=== PATIENT | male | born 1965 | race Caucasian/White ===

== ENCOUNTER → 2020-11-18 00:21 | Outpatient (CLI) | payer OTHER, SELFPAY ==
[2020-11-18 20:39] LABS: SARS-CoV-2 RNA PCR Negative
== END ==
PROVIDERS: PCP Family Medicine; Visit Provider Internal Medicine Gastroenterology
DX: Z01.812 Encounter for preprocedural laboratory examination (principal); Z20.822 Contact with and (suspected) exposure to COVID-19
CPT/HCPCS: C9803; U0003; U0005

== ENCOUNTER 2020-11-21 01:38 | Day surgery (SDC) | payer OTHER, SELFPAY ==
[2020-11-14 10:06] VITALS: BMI 36.6
[2020-11-21] MEDS: LACTATED RINGERS 1,000 ML 150 ML IV CONT (09:25)
[2020-11-21 09:30] VITALS: BP 149/92; PULSE 80; RESP 18; TEMP 36.5; O2SAT 98; BMI 35.6
--- NOTE | 2020-11-21 09:34 | WPDANESEPPF ---
Anes - Initial Pre Proc Eval Procedure: Operation Date: 11/21/20 10:30 Proposed Procedures p Screening Colonoscopy - Vel Cote MD Date/Time: 11/21/20 09:34 Surgeon: Vel Cote MD Pre Op Diagnosis: neoplasm screening Patient Data Age: 55 Gender: M Height: 5 ft 11 in Weight: 116.1 kg Last Vital Signs Temp 36.5 C 11/21/20 09:30 Pulse 80 11/21/20 09:30 Resp 18 11/21/20 09:30 BP 149/92 H 11/21/20 09:30 Pulse Ox 98 11/21/20 09:30 Allergies Allergy/AdvReac Type Severity Reaction Status Date / Time codeine Allergy Unknown Rash Verified 11/21/20 09:27 lisinopril Allergy Unknown cough Verified 11/21/20 09:27 pravastatin Allergy Unknown edema both Verified 11/21/20 09:27 LE Home Medications Medication Instructions Recorded Confirmed Type aspirin 81 mg tablet,delayed 81 mg PO DAILY 12/06/19 11/14/20 History release paroxetine HCl 10 mg tablet See Rx Instructions .ROUTE 07/03/20 11/14/20 Rx .COMPLEX #30 tablet telmisartan 80 mg tablet See Rx Instructions .ROUTE 09/26/20 11/14/20 Rx .COMPLEX #30 tablet metformin 500 mg tablet 1,000 mg PO BID #360 tablet 10/10/20 11/14/20 Rx omeprazole 40 mg capsule,delayed See Rx Instructions .ROUTE 10/10/20 11/14/20 Rx release .COMPLEX #90 cap simvastatin 40 mg tablet 40 mg PO DAILY #90 tablet 10/10/20 11/14/20 Rx metoprolol tartrate 50 mg PO DAILY 11/14/20 11/14/20 History sodium,potassium,mag sulfates See Rx Instructions .ROUTE 11/20/20 Rx [Suprep Bowel Prep Kit] .COMPLEX #1 ml Patient hx anesthesia problems: none Family hx anesthesia problems: none PMFSH Past Medical History Medical History Abnormal colonoscopy Knee injury Surgical History Surgical History History of esophagogastroduodenoscopy (EGD) Family History Family History Father Diabetes mellitus Hypertension Family history of elevated blood lipids Mother Hypertension Sibling Hypertension Family history of elevated blood lipids Other Family history of cardiovascular disease Social History Social History Smoking packs per day: 0.5 Smoking cigarettes per day: 10.0 Years smoked: 10 Smoking pack-years: 5.00 Smoking status: Former smoker Tobacco type: cigarettes Smoking end date: 10/13/11 Alcohol intake: current Drinks per week: 20 Substance use: never Substance use type: does not use Living arrangements: with family Spiritual care concerns: No Anes - Eval Final PreProcedure Day of Procedure 11/21/20 09:34 Patient weight: obese Heart: regular rate and rhythm Lungs: clear to auscultation Airway: Mallampati scale class 1 Neurological: alert and oriented Last oral intake: >/= 8 hours ASA classification: III Emergent: no Anesthetic plan: proceed Anesthesia type and monitoring: general GIVS and standard monitoring Informed Consent: The patient's anesthetic plan and its attendant risks and benefits were discussed with the patient/family/POA. Questions were solicited and answers provided to the satisfaction of the patient/family/POA.
[2020-11-21 09:38] LABS: Glucose Point of Care 159 (65-105)
--- NOTE | 2020-11-21 09:39 | WPDGICN ---
Assessment and Plan Assessment and plan (1) Colon cancer screening: Code(s): Z12.11 - Encounter for screening for malignant neoplasm of colon Status: Acute Assessment and Plan: Neoplasia screening advised because of patient's age. For this reason colonoscopy will be performed today. GI Consult Note Consult date/time: 11/21/20 09:39 HPI: Chano Aviles is a 55 year old male Presents for neoplasia screening. Patient has never had a colonoscopy before. His current weight appetite bowel movements are normal. He denies any blood in his stools. His weight has remained stable. Presents for screening colonoscopy today. Review of Systems Review of Systems: All systems reviewed & are unremarkable except as noted in HPI and below PMFSH Past Medical History Medical History Abnormal colonoscopy Knee injury Surgical History Surgical History History of esophagogastroduodenoscopy (EGD) Family History Family History Father Diabetes mellitus Hypertension Family history of elevated blood lipids Mother Hypertension Sibling Hypertension Family history of elevated blood lipids Other Family history of cardiovascular disease Social History Social History Smoking packs per day: 0.5 Smoking cigarettes per day: 10.0 Years smoked: 10 Smoking pack-years: 5.00 Smoking status: Former smoker Tobacco type: cigarettes Smoking end date: 10/13/11 Alcohol intake: current Drinks per week: 20 Substance use: never Substance use type: does not use Living arrangements: with family Spiritual care concerns: No Meds Home Medications and Allergies Home Medications Medication Instructions Recorded Confirmed Type aspirin 81 mg tablet,delayed 81 mg PO DAILY 12/06/19 11/14/20 History release paroxetine HCl 10 mg tablet See Rx Instructions .ROUTE 07/03/20 11/14/20 Rx .COMPLEX #30 tablet telmisartan 80 mg tablet See Rx Instructions .ROUTE 09/26/20 11/14/20 Rx .COMPLEX #30 tablet metformin 500 mg tablet 1,000 mg PO BID #360 tablet 10/10/20 11/14/20 Rx omeprazole 40 mg capsule,delayed See Rx Instructions .ROUTE 10/10/20 11/14/20 Rx release .COMPLEX #90 cap simvastatin 40 mg tablet 40 mg PO DAILY #90 tablet 10/10/20 11/14/20 Rx metoprolol tartrate 50 mg PO DAILY 11/14/20 11/14/20 History sodium,potassium,mag sulfates See Rx Instructions .ROUTE 11/20/20 Rx [Suprep Bowel Prep Kit] .COMPLEX #1 ml Allergies Allergy/AdvReac Type Severity Reaction Status Date / Time codeine Allergy Unknown Rash Verified 11/21/20 09:27 lisinopril Allergy Unknown cough Verified 11/21/20 09:27 pravastatin Allergy Unknown edema both Verified 11/21/20 09:27 LE Vital Signs Vital Signs - 24 hr 11/21/20 09:30 Temperature 97.7 F Pulse Rate 80 Respiratory Rate 18 Blood Pressure 149/92 H Pulse Oximetry 98 Exam Narrative: Exam Narrative: Physical exam reveals patient be alert. Vital signs stable. HEENT exam unremarkable. Lungs are clear to auscultation and percussion. Heart is without murmur or extra sounds. Abdominal exam bowel sounds are present soft nontender with no organomegaly. Digital external rectal exam is normal.
[2020-11-21 10:44] VITALS: BP 124/70; PULSE 79; RESP 25; O2SAT 97
[2020-11-21 10:54] VITALS: BP 116/76; PULSE 74; RESP 23; O2SAT 99
[2020-11-21 11:04] VITALS: BP 118/50; PULSE 74; RESP 23; O2SAT 96
== END 2020-11-21 11:19 | disposition home or self-care (01) ==
PROVIDERS: PCP Family Medicine; Visit Provider Internal Medicine Gastroenterology
PROC: 0DJD8ZZ Inspection of Lower Intestinal Tract, Via Natural or Artificial Opening Endoscopic (ICD-10-PCS; CPT 45378; principal; 2020-11-21 10:30)
DX: Z12.11 Encounter for screening for malignant neoplasm of colon (principal); D12.3 Benign neoplasm of transverse colon; K57.30 Diverticulosis of large intestine without perforation or abscess without bleeding; Z87.891 Personal history of nicotine dependence
CPT/HCPCS: 45385; 82948; 88305; C9803; J2704; J7120; U0003; U0005

== ENCOUNTER → 2021-01-29 09:13 | Outpatient (CLI) | payer OTHER, SELFPAY ==
--- NOTE | ~2021-01-29 | US_ITS ---
US right upper quadrant DATE: 01/29/2021 09:34 INDICATION: Elevated liver transaminase levels TECHNIQUE: Real-time imaging of liver, pancreas, gallbladder COMPARISON: None FINDINGS: There is fatty change of the liver. There is suboptimal penetration of the liver as a resul t, limiting evaluation. There is an approximately 5 mm hepatic cyst. Normal hepatopedal portal venous flow direction. The pancreas is not well demonstrated due to interference from bowel gas. No evidence of gallstones or gallbladder wall thickening or abnormal pericholecystic fluid. The commo n bile duct measures 3 mm. Negative sonographic Duenas's sign. IMPRESSION: Pancreas is largely obscured by bowel gas Hepatic steatosis. Small hepatic cyst Reviewed, dictated and finalized at [facility]. Reviewed, dictated and finalized at location A.
== END ==
PROVIDERS: PCP Family Medicine; Visit Provider Family Medicine
DX: R74.01 Elevation of levels of liver transaminase levels (principal); K76.0 Fatty (change of) liver, not elsewhere classified; K76.89 Other specified diseases of liver
CPT/HCPCS: 76705

== ENCOUNTER 2022-12-11 07:19 | Outpatient (CLI) | payer OTHER, SELFPAY ==
[2022-12-11 08:04] LABS: Alanine Aminotransferase 35 U/L (6-50); Albumin Level 4.9 g/dL (3.5-5.1); Alkaline Phosphatase 61 U/L (38-126); Anion Gap 9 mmol/L (8-16); Aspartate Amino Transferase 29 U/L (17-59); Bilirubin,Total 0.8 mg/dL (0.2-1.3); Blood Urea Nitrogen 13 mg/dL (9-20); Calcium 9.4 mg/dL (8.4-10.2); Carbon Dioxide 28 mmol/L (22-30); Chloride 99 mmol/L (98-107); Cholesterol 126 mg/dL (0-200); Estimated Glomerular Filt Rate > 60; Glucose 165 mg/dL (65-110); HDL Direct 37 mg/dL; Sodium 136 mmol/L (137-145); Triglycerides 213 mg/dL (<150)
[2022-12-11 08:15] LABS: LDL Cholesterol Direct 57 mg/dL
[2022-12-11 08:19] LABS: Creatinine Urine 112.3 mg/dL
[2022-12-11 08:22] LABS: MALB Creatinine Ratio 72.5 mg/g (0-30); Microalbumin Urine Random 81.4 mg/L (0-16.7)
[2022-12-11 09:21] LABS: Hemoglobin A1C 7.4 % (<5.7)
== END 2022-12-11 07:20 | disposition home or self-care (01) ==
LOC: ANHLAB 07:21
PROVIDERS: PCP Family Medicine; Visit Provider Nurse Practitioner
DX: E78.2 Mixed hyperlipidemia (principal); E11.9 Type 2 diabetes mellitus without complications; E03.9 Hypothyroidism, unspecified
CPT/HCPCS: 36415; 80053; 80061; 82043; 83036; 84443

== ENCOUNTER 2023-04-04 07:28 | Outpatient (CLI) | payer OTHER, SELFPAY ==
[2023-04-04 08:42] LABS: Alanine Aminotransferase 34 U/L (6-50); Albumin Level 4.6 g/dL (3.5-5.1); Alkaline Phosphatase 57 U/L (38-126); Anion Gap 10 mmol/L (8-16); Aspartate Amino Transferase 29 U/L (17-59); Bilirubin,Total 0.8 mg/dL (0.2-1.3); Blood Urea Nitrogen 16 mg/dL (9-20); Calcium 8.8 mg/dL (8.4-10.2); Carbon Dioxide 26 mmol/L (22-30); Chloride 103 mmol/L (98-107); Cholesterol 94 mg/dL (0-200); Estimated Glomerular Filt Rate > 60; Glucose 194 mg/dL (65-110); HDL Direct 34 mg/dL; Potassium 3.8 mmol/L (3.4-5.0); Sodium 139 mmol/L (137-145); Triglycerides 135 mg/dL (<150)
[2023-04-04 08:53] LABS: LDL Cholesterol Direct 45 mg/dL
[2023-04-04 09:45] LABS: Free T4 Free Thyroxine 0.89 ng/mL (0.78-2.19)
[2023-04-04 10:34] LABS: Hemoglobin A1C 7.2 % (<5.7)
== END 2023-04-04 07:29 | disposition home or self-care (01) ==
LOC: ANHLAB 07:29
PROVIDERS: PCP Family Medicine; Visit Provider Family Medicine
DX: F41.1 Generalized anxiety disorder (principal); E88.81 Metabolic syndrome and other insulin resistance; E78.2 Mixed hyperlipidemia; E11.9 Type 2 diabetes mellitus without complications; E03.9 Hypothyroidism, unspecified; I10 Essential (primary) hypertension
CPT/HCPCS: 36415; 80053; 80061; 83036; 84439; 84443

== ENCOUNTER 2023-07-28 07:14 | Outpatient (CLI) | payer OTHER, SELFPAY ==
[2023-07-28 08:03] LABS: Alanine Aminotransferase 37 U/L (6-50); Albumin Level 4.6 g/dL (3.5-5.1); Alkaline Phosphatase 59 U/L (38-126); Anion Gap 9 mmol/L (8-16); Aspartate Amino Transferase 31 U/L (17-59); Bilirubin,Total 0.8 mg/dL (0.2-1.3); Blood Urea Nitrogen 18 mg/dL (9-20); Carbon Dioxide 27 mmol/L (22-30); Chloride 102 mmol/L (98-107); Cholesterol 122 mg/dL (0-200); Estimated Glomerular Filt Rate > 60; Glucose 236 mg/dL (65-110); HDL Direct 37 mg/dL; Potassium 4.5 mmol/L (3.4-5.0); Sodium 138 mmol/L (137-145); Triglycerides 286 mg/dL (<150)
[2023-07-28 08:04] LABS: Hemoglobin A1C 7.1 % (<5.7)
[2023-07-28 08:16] LABS: LDL Cholesterol Direct 56 mg/dL
[2023-07-28 08:35] LABS: Creatinine Urine 180.3 mg/dL
[2023-07-28 08:41] LABS: Prostate Specific Antigen 2.1 ng/mL (< OR = 4.0)
[2023-07-28 09:07] LABS: MALB Creatinine Ratio 162.8 mg/g (0-30); Microalbumin Urine Random 293.6 mg/L (0-16.7)
== END 2023-07-28 07:15 | disposition home or self-care (01) ==
LOC: ANHLAB 07:16
PROVIDERS: PCP Family Medicine; Visit Provider Nurse Practitioner
DX: Z12.5 Encounter for screening for malignant neoplasm of prostate (principal); Z00.00 Encounter for general adult medical examination without abnormal findings; E11.9 Type 2 diabetes mellitus without complications
CPT/HCPCS: 36415; 80053; 80061; 82043; 83036; 84153; 84443; G0103

== ENCOUNTER 2023-10-04 07:49 | Outpatient (CLI) | payer OTHER, SELFPAY ==
[2023-10-04 08:10] LABS: Hematocrit 43.4 % (42.0-52.0); Hemoglobin 14.3 g/dL (14.0-18.0); Mean Corpuscular HGB Conc 32.9 g/dl (32-36); Mean Platelet Volume 10.6 fl (7.4-10.4); Platelet Count Result 180 k/mm3 (150-375); Red Blood Count 4.77 M/mm3 (4.6-6.20); White Blood Count 6.5 K/mm3 (4.5-10.0)
[2023-10-04 08:14] LABS: Appearance Urine Clear (Clear); Bilirubin Urine Negative (Negative); Blood Urine Negative (Negative); Color Urine Yellow (Yellow); Glucose Urine UA 3+ mg/dL (Negative); Ketones Urine Negative (Negative); Leukocyte Esterase Ur Negative LEU/UL (NEGATIVE); Nitrate Urine Negative (Negative); Protein Urine Negative (Negative); Specific Grav Ur 1.029 (1.001-1.035); pH Urine 5.5 (5.0-9.0)
[2023-10-04 08:27] LABS: Total Protein Urine Random 19 mg/dL; Ur Ttl Prot Creatinine Ratio 0.21 mg/mg (0-0.20)
[2023-10-04 08:32] LABS: Add Urine Microscopic? NO
[2023-10-04 08:41] LABS: Alanine Aminotransferase 32 U/L (6-50); Albumin Level 4.8 g/dL (3.5-5.1); Alkaline Phosphatase 62 U/L (38-126); Anion Gap 14 mmol/L (8-16); Aspartate Amino Transferase 27 U/L (17-59); Bilirubin,Total 0.8 mg/dL (0.2-1.3); Blood Urea Nitrogen 15 mg/dL (9-20); Calcium 9.8 mg/dL (8.4-10.2); Carbon Dioxide 24 mmol/L (22-30); Chloride 102 mmol/L (98-107); Cholesterol 98 mg/dL (0-200); Estimated Glomerular Filt Rate > 60; Glucose 116 mg/dL (65-110); HDL Direct 29 mg/dL; Potassium 3.7 mmol/L (3.4-5.0); Sodium 140 mmol/L (137-145); Triglycerides 271 mg/dL (<150)
[2023-10-04 08:43] LABS: Albumin Level 4.9 g/dL (3.5-5.1); Anion Gap 14 mmol/L (8-16); Blood Urea Nitrogen 15 mg/dL (9-20); Calcium 9.9 mg/dL (8.4-10.2); Carbon Dioxide 23 mmol/L (22-30); Chloride 102 mmol/L (98-107); Creatine Kinase 45 U/L (55-170); Estimated Glomerular Filt Rate > 60; Glucose 115 mg/dL (65-110); Phosphorus 3.8 mg/dL (2.5-4.5); Potassium 3.7 mmol/L (3.4-5.0); Sodium 139 mmol/L (137-145)
[2023-10-04 08:47] LABS: Complement C3 147 mg/dL (88-165)
[2023-10-04 08:52] LABS: LDL Cholesterol Direct 44 mg/dL
[2023-10-04 09:57] LABS: Hemoglobin A1C 6.6 % (<5.7)
[2023-10-04 09:58] LABS: Erythrocyte Sedimentation Rate 14 mm/hr (0-20)
[2023-10-04 11:07] LABS: Creatinine Urine 90.3 mg/dL
[2023-10-04 11:11] LABS: MALB Creatinine Ratio 71.3 mg/g (0-30); Microalbumin Urine Random 64.4 mg/L (0-16.7)
[2023-10-04 14:42] LABS: Total Volume 24 Hour Urine 2650 ml; Urea Nitrogen 24 Hour Urine 15.8 G/DAY (12-20)
[2023-10-07 23:26] LABS: Kappa\\Lambda Light Chains 1.17 (0.26-1.65); Lambda Light Chain 13.5 mg/L (5.7-26.3)
[2023-10-08 20:01] LABS: Complement Total CH50 56 U/mL (31-60)
[2023-10-09 22:50] LABS: Anti Nuclear Antibody Pattern Nuclear, Nucleolar
[2023-10-09 23:32] LABS: Albumin 53 %; Creat 24 Hr 1.79 g/24 h (0.50-2.15); Pro/Creat Ratio 134 mg/g creat (<100); Pro/Creat Ratio mg/mg 0.134 (<0.100); Protein,total, 24 Hr Ur 239 mg/24 h (<100)
== END 2023-10-04 07:50 | disposition home or self-care (01) ==
LOC: ANHLAB 07:50
PROVIDERS: Nurse Practitioner; PCP Family Medicine; Visit Provider Internal Medicine Nephrology
DX: Z00.00 Encounter for general adult medical examination without abnormal findings (principal); Z12.5 Encounter for screening for malignant neoplasm of prostate; R80.1 Persistent proteinuria, unspecified
CPT/HCPCS: 36415; 80053; 80061; 80069; 81003; 81050; 82043; 82550; 82570; 83036; 83883; 84153; 84156; 84443; 84540; 85027; 85652; 86038; 86039; 86160; 86162; 86334; 86335; G0103

== ENCOUNTER → 2023-10-14 16:17 | Outpatient (CLI) | payer OTHER, SELFPAY ==
--- NOTE | ~2023-10-14 | US_ITS ---
EXAMINATION: US renal BI DATE: 10/14/2023 16:34 INDICATION: R80.1 - Persistent proteinuria, unspecified TECHNIQUE: Multiple grayscale and Doppler ultrasound images of the kidneys were obtained. COMPARISON: None. FINDINGS: The right kidney measures 12.6 x 7.2 x 6.8 cm. The left kidney measures 12.1 x 6.2 x 6.0 cm. The kidn eys demonstrate normal parenchymal echogenicity and cortical thickness. 1.2 cm simple left midpole [address]. There is no hydronephrosis. The bladder is partially filled, no wall thickening. IMPRESSION: Unremarkable renal sonogram findings. Reviewed, dictated and finalized at location K. 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
== END ==
PROVIDERS: PCP Internal Medicine Nephrology; Visit Provider Internal Medicine Nephrology
DX: R80.1 Persistent proteinuria, unspecified (principal)
CPT/HCPCS: 76775

== ENCOUNTER 2023-10-23 15:46 | Outpatient (CLI) | payer OTHER, SELFPAY ==
[2023-10-23 16:03] LABS: Basophils Absolute Auto 0.1 K/mm3 (0.0-0.1); Eosinophils Absolute Auto 0.2 K/mm3 (0-0.3); Eosinophils Percent Auto 2.4 % (0-4.4); Hematocrit 45.3 % (42.0-52.0); Hemoglobin 15.2 g/dL (14.0-18.0); Immature Granulocyte Absolute 0.04 K/mm3 (0.00-0.031); Immature Granulocyte Percent A 0.5 % (0-0.5); Lymphocytes Percent Auto 32.8 % (18.3-44.2); Mean Corpuscular HGB Conc 33.6 g/dl (32-36); Mean Corpuscular Hemoglobin 30.1 pg (26-34); Mean Corpuscular Volume 89.7 fl (80-100); Mean Platelet Volume 10.7 fl (7.4-10.4); Monocytes Absolute Auto 0.9 K/mm3 (0.1-0.6); Monocytes Percent Auto 10.4 % (2.6-8.5); Neutrophils Absolute Auto 4.4 K/mm3 (1.3-6.7); Neutrophils Percent Auto 52.9 % (45.5-73.1); Platelet Count Result 190 k/mm3 (150-375); Red Blood Count 5.05 M/mm3 (4.6-6.20); Red Cell Distribution Width 13.4 % (11.5-14.5); White Blood Count 8.2 K/mm3 (4.5-10.0)
[2023-10-23 16:46] LABS: Alanine Aminotransferase 36 U/L (6-50); Albumin Level 5.1 g/dL (3.5-5.1); Alkaline Phosphatase 60 U/L (38-126); Anion Gap 13 mmol/L (8-16); Aspartate Amino Transferase 34 U/L (17-59); Blood Urea Nitrogen 16 mg/dL (9-20); Calcium 10.3 mg/dL (8.4-10.2); Carbon Dioxide 26 mmol/L (22-30); Chloride 101 mmol/L (98-107); Estimated Glomerular Filt Rate > 60; Glucose 105 mg/dL (65-110); Sodium 140 mmol/L (137-145)
[2023-10-23 17:57] LABS: Immunoglobulin A 148 mg/dL (70-400); Immunoglobulin G 685 mg/dL (700-1600); Immunoglobulin M 40 mg/dL (40-230)
[2023-10-26 15:31] LABS: Kappa\\Lambda Light Chains 1.27 (0.26-1.65); Lambda Light Chain 14.2 mg/L (5.7-26.3)
[2023-10-28 07:48] LABS: Albumin 4.8 g/dL (3.8-4.8); Alpha 1 Globulin 0.3 g/dL (0.2-0.3); Alpha 2 Globulin 0.9 g/dL (0.5-0.9); Beta 1 Globulin 0.6 g/dL (0.4-0.6); Gamma Globulin 0.7 g/dL (0.8-1.7); Interpretation Consistent with; Protein, Total 7.6 g/dL (6.1-8.1)
== END 2023-10-23 15:47 | disposition home or self-care (01) ==
PROVIDERS: PCP Internal Medicine Nephrology; Visit Provider Internal Medicine Hematology & Oncology
DX: C90.00 Multiple myeloma not having achieved remission (principal)
CPT/HCPCS: 36415; 80053; 82784; 83883; 84155; 84165; 85025

== ENCOUNTER 2023-11-13 05:35 | Outpatient (CLI) | payer OTHER, SELFPAY ==
[2023-11-06 10:42] VITALS: BMI 34.4
--- NOTE | 2023-11-06 10:42 | PC.NURSE ---
Pre Radiology instructions Report to the outpatient [facility] on date 11/13/23 at time 0730 for procedure Time: 0930. YOU MAY BE MONITORED AT HOSPITAL FOR UP TO 4 HOURS AFTER YOUR PROCEDURE. A visitor will be allowed to accompany the patient into the hospital. You and your visitor will be asked to self-screen and do not enter if you have any COVID symptoms. A mask is OPTIONAL within the hospital. Patients are to have no food or drink 6 hours prior to procedure time Driving will be restricted after the procedure, you must have a person to drive you home. Labs will be drawn in preop area and once reviewed, you will be taken to radiology area for procedure. When the procedure is completed, you will be taken to outpatient where you will be monitored for several hours. You may have one visitor in this area. Other than holding anti-coagulants, patient may take other medication(s) as scheduled. Prior to your appointment date patients are instructed to hold anti-coagulants after discussing with ordering provider to stop. If unable to discontinue anti-coagulants please notify radiologist. ? No aspirin or warfarin (Coumadin) for 7 days prior to the procedure. ? No clopidogrel (Plavix), ticagrelor (Brilinta), prasugrel (Effient) or dabigatran (Pradaxa) for 5 days prior to the procedure. ? No rivaroxaban (Xarelto), apixaban (Eliquis), dipyridamole (Aggrenox or Persantine) or cilostazol (Pletal) for 2 days prior to the procedure. Medications to discontinue per physician: ASPIRIN Date to take last dose: 11/05/23 Please leave all valuables, including medications, at home the day of procedure. The hospital will not accept responsibility for valuables. Wear comfortable, loose fitting clothing.? Follow any additional instructions given to you from ordering provider. Telephone instructions given to JUJU FORMAN and asked if any additional questions and then verbalized understanding. Patient advised to call scheduling provider office or registration scheduling [phone] if any additional questions.
[2023-11-13] VITALS (11 sets, daily range): BP systolic 114–140; BP diastolic 65–78; PULSE 63–73; RESP 14–18; TEMP 36.3; O2SAT 95–96
--- NOTE | ~2023-11-13 | US_ITS ---
EXAMINATION: US biopsy renal DATE: 11/13/2023 10:26 INDICATION: Proteinuria. Positive RITCHIE. TECHNIQUE: The procedure including the risks, benefits, and alternatives was discussed with the patie nt. Risks discussed included bleeding and infection. The patient understood the risks and agreed to p roceed. A timeout was performed to verify the patient's name, date of , and procedure to be p erformed. The skin overlying the left kidney was prepped and draped in usual sterile fashion. Anest hetic was administered with 1% lidocaine subcutaneously. An 18 gauge core biopsy needle was then use d to obtain 3 core biopsy specimens under continuous sonographic guidance. The entry site was cleaned and dressed. There were no immediate complications. FINDINGS: Ultrasound images demonstrate the needle in the kidney. IMPRESSION: 1. Ultrasound-guided random left kidney core needle biopsy. Reviewed, dictated and finalized at location A. 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
[2023-11-13 08:10] LABS: Mean Platelet Volume 10.7 fl (7.4-10.4); Platelet Count Result 183 k/mm3 (150-375)
[2023-11-13 08:21] LABS: INR 0.9; Prothrombin Time 12.8 Seconds (11.1-14.7)
== END 2023-11-13 14:25 | disposition home or self-care (01) ==
PROVIDERS: PCP Family Medicine; Referring Provider Internal Medicine Nephrology; Visit Provider Radiology Diagnostic Radiology
PROC: (CPT 76942; principal; 2023-11-13 09:30)
DX: Z01.818 Encounter for other preprocedural examination (principal); D89.2 Hypergammaglobulinemia, unspecified; R76.0 Raised antibody titer; R80.1 Persistent proteinuria, unspecified; I12.9 Hypertensive chronic kidney disease with stage 1 through stage 4 chronic kidney disease, or unspecified chronic kidney disease; N18.9 Chronic kidney disease, unspecified
CPT/HCPCS: 36415; 50200; 76942; 85049; 85610; 88300; 88329

== ENCOUNTER 2023-12-27 06:55 | Outpatient (CLI) | payer OTHER, SELFPAY ==
[2023-12-27 07:50] LABS: Alanine Aminotransferase 29 U/L (6-50); Albumin Level 4.6 g/dL (3.5-5.1); Alkaline Phosphatase 57 U/L (38-126); Anion Gap 10 mmol/L (8-16); Aspartate Amino Transferase 29 U/L (17-59); Bilirubin,Total 0.7 mg/dL (0.2-1.3); Blood Urea Nitrogen 14 mg/dL (9-20); Calcium 9.4 mg/dL (8.4-10.2); Carbon Dioxide 25 mmol/L (22-30); Chloride 104 mmol/L (98-107); Cholesterol 94 mg/dL (0-200); Estimated Glomerular Filt Rate > 60; Glucose 109 mg/dL (65-110); HDL Direct 32 mg/dL; Potassium 3.7 mmol/L (3.4-5.0); Sodium 139 mmol/L (137-145); Triglycerides 126 mg/dL (<150)
[2023-12-27 08:01] LABS: LDL Cholesterol Direct 51 mg/dL
[2023-12-27 08:20] LABS: Prostate Specific Antigen 2.2 ng/mL (< OR = 4.0)
[2023-12-27 08:43] LABS: Creatinine Urine 93.4 mg/dL
[2023-12-27 12:30] LABS: Hemoglobin A1C 6.2 % (<5.7)
== END 2023-12-27 06:56 | disposition home or self-care (01) ==
LOC: ANHLAB 06:56
PROVIDERS: PCP Family Medicine; Visit Provider Nurse Practitioner
DX: Z12.5 Encounter for screening for malignant neoplasm of prostate (principal); E11.9 Type 2 diabetes mellitus without complications; E03.9 Hypothyroidism, unspecified; E78.5 Hyperlipidemia, unspecified
CPT/HCPCS: 36415; 80053; 80061; 82043; 83036; 84153; 84443; G0103

== ENCOUNTER 2024-03-17 09:09 | Outpatient (CLI) | payer OTHER, SELFPAY ==
--- NOTE | ~2024-03-17 | MMUS_ITS ---
EXAMINATION: MM diagnostic live RT w morenita, US breast RT limited HISTORY: Palpable right breast abnormality. TECHNIQUE: Additional 3-D tomosynthesis images of the right breast were performed and synthetic 2-D i mages were generated. CAD analysis was submitted and interpreted. High resolution Limited right breas t ultrasound was performed. COMPARISON: None BREAST PARENCHYMAL COMPOSITION: Not dense: There are scattered areas of fibroglandular density. FINDINGS: MAMMOGRAPHIC FINDINGS: There is gynecomastia. No cyst or discrete mass identified in the area of palpable concern. No suspic ious calcifications or architectural distortion. ULTRASOUND: Limited right breast ultrasound: In the area of palpable concern at 7:00, 7 cm from the nipple there is a circumscribed oval hypoechoic mass with horizontal septations measuring 5.5 x 4.8 x 3.4 cm, comp atible with benign lipoma. No posterior features. IMPRESSION: 1. No evidence for malignancy in the right breast. Benign lipoma corresponding to the area palpable c oncern. 2. Recommend follow-up clinical management for lipoma and gynecomastia. BI-RADS Category 2: Benign finding(s). Reviewed, dictated and finalized at location B. IMPRESSION: 1. No evidence for malignancy in the right breast. Benign lipoma corresponding to the area palpable concern. 2. Recommend follow-up clinical management for lipoma and gynecomastia. BI-RADS Category 2: Benign finding(s).
[2024-03-17 10:28] LABS: Alanine Aminotransferase 23 U/L (6-50); Alkaline Phosphatase 57 U/L (38-126); Anion Gap 9 mmol/L (4-12); Aspartate Amino Transferase 27 U/L (17-59); Bilirubin,Total 1.2 mg/dL (0.2-1.3); Blood Urea Nitrogen 15 mg/dL (9-20); Calcium 9.8 mg/dL (8.4-10.2); Carbon Dioxide 26 mmol/L (22-30); Chloride 104 mmol/L (98-107); Cholesterol 96 mg/dL (0-200); Estimated Glomerular Filt Rate > 60; Glucose 104 mg/dL (65-110); HDL Direct 36 mg/dL; Potassium 4.1 mmol/L (3.4-5.0); Sodium 139 mmol/L (137-145); Triglycerides 136 mg/dL (<150)
[2024-03-17 10:40] LABS: LDL Cholesterol Direct 47 mg/dL
[2024-03-17 10:50] LABS: Hemoglobin A1C 5.5 % (<5.7)
[2024-03-17 10:53] LABS: Creatinine Urine 112.7 mg/dL
[2024-03-17 10:57] LABS: MALB Creatinine Ratio 44.8 mg/g (0-30); Microalbumin Urine Random 50.5 mg/L (0-16.7)
== END 2024-03-17 09:10 | disposition home or self-care (01) ==
PROVIDERS: PCP Family Medicine; Visit Provider Nurse Practitioner
DX: N63.10 Unspecified lump in the right breast, unspecified quadrant (principal); E11.9 Type 2 diabetes mellitus without complications; E78.2 Mixed hyperlipidemia; E03.9 Hypothyroidism, unspecified
CPT/HCPCS: 36415; 76642; 77061; 77065; 80053; 80061; 82043; 83036; 84443; G0279

== ENCOUNTER 2024-08-07 07:09 | Outpatient (CLI) | payer OTHER, SELFPAY ==
[2024-08-07 08:07] LABS: Alanine Aminotransferase 19 U/L (6-50); Albumin Level 4.5 g/dL (3.5-5.1); Alkaline Phosphatase 48 U/L (38-126); Anion Gap 10 mmol/L (4-12); Aspartate Amino Transferase 22 U/L (17-59); Bilirubin,Total 0.6 mg/dL (0.2-1.3); Blood Urea Nitrogen 13 mg/dL (9-20); Carbon Dioxide 27 mmol/L (22-30); Chloride 106 mmol/L (98-107); Cholesterol 108 mg/dL (0-200); Estimated Glomerular Filt Rate > 60; Glucose 106 mg/dL (65-110); HDL Direct 46 mg/dL; Potassium 3.6 mmol/L (3.4-5.0); Sodium 143 mmol/L (137-145); Triglycerides 75 mg/dL (<150)
[2024-08-07 08:18] LABS: LDL Cholesterol Direct 43 mg/dL
[2024-08-07 08:38] LABS: Hemoglobin A1C 5.7 % (<5.7)
[2024-08-07 08:44] LABS: Free T4 Free Thyroxine 0.87 ng/mL (0.78-2.19)
[2024-08-07 08:47] LABS: Creatinine Urine 93.7 mg/dL
[2024-08-07 08:51] LABS: MALB Creatinine Ratio 39.5 mg/g (0-30)
== END 2024-08-07 07:10 | disposition home or self-care (01) ==
LOC: ANHLAB 07:10
PROVIDERS: PCP Family Medicine; Visit Provider Nurse Practitioner
DX: E03.9 Hypothyroidism, unspecified (principal); E11.9 Type 2 diabetes mellitus without complications; E78.2 Mixed hyperlipidemia
CPT/HCPCS: 36415; 80053; 80061; 82043; 83036; 84439; 84443

== ENCOUNTER 2024-12-06 06:52 | Outpatient (CLI) | payer OTHER, SELFPAY ==
--- OUTSIDE RECORDS SUMMARY | 2024-12-06 06:59 | XMS_ITS | Encounter Summary ---
Author Organization [facility] Address [address] [place] [address] Phone Care Team Providers Care Automotive Engineering Teacher Name Role Phone Arminda Morrow DO Primary Care Provider [phone] Encounter Details Date Type Department Care Team (Latest Contact Info) Description 10/19/2021 Orders Only [facility] Scanning, Provider Social History Tobacco Use Types Packs/Day Years Used Date Smoking Tobacco: Former Cigarettes 0.8 15 0 12/03/1994 - 12/03/2009 Smokeless Tobacco: Never Sex and Gender Information Value Date Recorded Sex Assigned at Not on file 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 Gender Identity Not on file Sexual Orientation Not on file documented as of this encounter Plan of Treatment Not on file documented as of this encounter Procedures Procedure Name Priority Date/Time Associated Diagnosis Comments SCAN - LABS 10/19/2021 documented in this encounter Results * SCAN - LABS (10/19/2021) us Provider Scanning Final Result documented in this encounter Visit Diagnoses Not on filedocumented in this encounter Care Teams Automotive Engineering Teacher Relationship Specialty Start Date End Date Arminda Morrow DO PCP - General Family Medicine 02/18/22 documented as of this encounter
--- OUTSIDE RECORDS SUMMARY | 2024-12-06 06:59 | XMS_ITS | Referral Summary ---
Author Organization [facility] Address [address] [place] [address] Care Team Providers Care Milk Truck Driver Name Role Phone Heri Brown MD Primary Care Provider [phone] Source Comments [facility],non-owned Affiliates and Associated Physician Practices is amultiple site organization consisting of ambulatory clinics and hospital sitesin [place], [place], [place] and [place]. This disclosure is being madepursuant to the Care Everywhere program and may not contain all information available regarding this patient. Last updated 18.[facility] Allergies Active Allergy Reactions Criticality Noted Date Comments Codeine Rash Medium 04/14/2018 Medications * Be aware that medications may not be up to date on this document. Alwaysverify current medications with the patient. Medication Sig Dispensed Refills Start Date End Date Status SIMVASTATIN PO Active PAROXETINE HCL PO Active TELMISARTAN PO Active METOPROLOL SUCCINATE ER PO Active Canagliflozin (INVOKANA PO) Active ASPIRIN 81 PO Active metFORMIN (GLUCOPHAGE) 500 MG tablet Take 500 mg by mouth 2 times daily with morning and evening meal Active OMEPRAZOLE PO Active benzonatate (TESSALON) 200 MG capsuleIndications:C ough Take 1 capsule by mouth 3 times daily as needed for Cough 30 capsule 04/14/2018 Active Social History Tobacco Use Types Packs/Day Years Used Date Smoking Tobacco: Former Smokeless Tobacco: Never Sex and Gender Information Value Date Recorded Sex Assigned at Not on file Gender Identity Not on file Sexual Orientation Not on file Last Filed Vital Signs Vital Sign Reading Time Taken Comments Blood Pressure 118/80 04/14/2018 9:53 AM CDT Pulse 67 04/14/2018 9:53 AM CDT Temperature 37.1 C (98.7 F) 04/14/2018 9:53 AM CDT Respiratory Rate 16 04/14/2018 9:53 AM CDT Oxygen Saturation 98% 04/14/2018 9:53 AM CDT Inhaled Oxygen Concentration - - Weight 122.5 kg (270 lb) 04/14/2018 9:53 AM CDT Height 177.8 cm (5' 10 ) 04/14/2018 9:53 AM CDT Body Mass Index 38.74 04/14/2018 9:53 AM CDT Plan of Treatment Not on file Care Teams Milk Truck Driver Relationship Specialty Start Date End Date Heri Brown MD [address] [place] [address] PCP - General Family Medicine 04/14/18
--- OUTSIDE RECORDS SUMMARY | 2024-12-06 06:59 | XMS_ITS | Continuity of Care Document ---
Author Organization [facility] Address [address] [place] [address] [place] [address] Phone Care Team Providers Care Healthcare Consulting Manager Name Role Phone Bashir Alford MD Unavailable Unavailable Advance Directives Directive Yes / No Effective Date File Name No Information Encounters Encounter Description Practice Location Reason(s) For Visit Diagnoses Date Provider Providers Copied on Encounter [facility], [id number] [place] [address] [address], [place], [place], [id number], [place] tel:[phone] [facility] No Information [address] [facility] [address], [place], [place], [id number], [place]. tel:[phone] Family History Family Member Type Diagnosis Age At Onset No Information Payers Payer name Insurance type Covered democrat ID Authoriza tion(s) No Information Social History Type Description Quantity Date Captured Comments Sex Male Smoking Status No Information Chief Complaint And Reason For Visit No Information Reason For Referral Reason For Referral No Information History Of Present Illness Encounter Date Complaint History Of Prese nt Illness No Information Functional Status Date Functional Assessmen t No Information Instructions Date Instruction Additional Infor mation No Information Assessments Type Assessment Date No Information Patient Care Teams Name Effective Dates (start - stop) Status Members No Information
--- OUTSIDE RECORDS SUMMARY | 2024-12-06 06:59 | XMS_ITS | Clinical Summary ---
Author Organization [facility] Address [address] [place] [address] Care Team Providers Care Kapok Machine Operator Name Role Phone Heri Brown MD Primary Care Provider [phone] [facility],non-owned Affiliates and Associated Physician Practices is amultiple site organization consisting of ambulatory clinics and hospital sitesin [place], [place], [place] and [place]. This disclosure is being madepursuant to the Care Everywhere program and may not contain all information available regarding this patient. Last updated 18.[facility] Allergies Active Allergy Reactions Criticality Noted Date [...] needed for Cough 30 capsule 04/14/2018 Active Family History Medical History Relation Name Comments Diabetes - Type 2 Father Hypertension Father Hypertension Mother Relation Name Status Comments Father Mother Social History Tobacco Use Types Packs/Day Years [...] 04/14/2018 9:53 AM CDT Plan of Treatment Health Maintenance Due Date Last Done Comments COLOGUARD (AGES 45-75) - COL ON CA SCREENING 1965 COLON MONITORING 1965 COLONOSCOPY - COLON CA SCREENING 1965 CT COLONOGRAPHY - COLON CA SCREENING 1965 Colorectal Cancer Screening 1965 FIT - COLON CA SCREENING 1965 FLEX SIG - COLON CA SCREENING 1965 HIV SCREENING 1980 HEPATITIS C SCREENING 03/02/1983 DTAP/TDAP/TD VACCINES (1 - Tdap) 1984 HEPATITIS B VACCINE (1 of 3 - 19+ 3-dose series) 1984 PNEUMOCOCCAL VACCINE 50+ (1 of 1 - PCV) 2015 ZOSTER VACCINE (1 of 2) 2015 SCREENING FOR DIABETES 04/14/2018 COVID-19 VACCINE ( - 2023-2 5 season) 2024 INFLUENZA VACCINE (#1) 2024 DEPRESSION SCREENING 10/13/2024 HIB VACCINE Aged Out No longer eligi ble based on patient's age to complete this topic HPV VACCINE Aged Out No longer eligi ble based on patient's age to complete this topic MENINGOCOCCAL (Group B) VACCINE Aged Out No longer eligible based on patient's age to complete this topic MENINGOCOCCAL VACCINE Aged Out No glenda lesley eligible based on patient's age to complete this topic PNEUMOCOCCAL VACCINE Aged Out No long er eligible based on patient's age to complete this topic Care Teams Kapok Machine Operator Relationship Specialty Start Date End Date Heri Brown MD [address] [place] [address] PCP - General Family Medicine 04/14/18
--- OUTSIDE RECORDS SUMMARY | 2024-12-06 06:59 | XMS_ITS | Referral Summary ---
Author Organization [facility] Address [address] [place] [address] Care Team Providers Care Revenue Cycle Specialist Name Role Phone Arminda Morrow DO Primary Care Provider [phone] Allergies Active Allergy Reactions Criticality Noted Date Comments Codeine Rash Medium Lisinopril Swelling Medium 10/23/2023 Pravastatin Cough Low 10/23/2023 Medications aspirin 81 mg tablet take 1 tablet daily Active metFORMIN (GLUCOPHAGE) 500 mg tablet Take 1 tablet (500 mg total) by mouth 2 (two) times a day with meals Active omeprazole (PriLOSEC) 40 mg capsule 1 capsule (40 mg total) daily 04/30/2018 Active telmisartan (MICARDIS) 80 mg tablet 1 tablet (80 mg total) daily 04/30/2018 Active PARoxetine (PAXIL) 10 mg tablet TK 1 T PO D 07/03/2020 Active nitroglycerin (NITROSTAT) 0.[address] 1 tablet (0.4 mg total) under the tongue every 5 (five) minutes as needed for chest pain 25 tablet 01/18/2021 Active metoprolol tartrate (LOPRESSOR) 50 mg immediate release tablet 07/20/2021 Acti ve Jardiance 10 mg tablet Take 1 tablet (10 mg total) by mouth daily 02/13/2022 Active tamsulosin (FLOMAX) 0.4 mg extended release capsule 09/09/2022 Act margret levothyroxine (SYNTHROID) 25 mcg tablet Take 1 tablet (25 mcg total) by mouth daily 11/05/2022 Active rosuvastatin (CRESTOR) 40 mg tablet Take 1 tablet by mouth once daily 90 tablet 1 04/28/2023 Active Ozempic 1 mg/dose (4 mg/3 mL) pen injector injection Inject 1 mg under the skin 03/29/2024 Active Active Problems Problem Noted Date Diagnosed Date Chest tightness 11/25/2019 Overview (11/25/2019): Added automatically from request for surgery [id number] 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 11/25/2019 Overview (11/25/2019): Added automatically from request for surgery [id number] Frequent PVCs 11/25/2019 Overview (11/25/2019): Added automatically from request for surgery [id number] Obesity with body mass index 30 or greater 07/30 Chronic coronary artery disease 07/30/2017 Cardiomyopathy 07/30/2016 Synovitis of knee 07/17/2015 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 Abnormal laboratory test result 06/20/2015 Abnormal cardiovascular stress test 06/16/2015 Bundle branch block 06/16/2015 Abnormal electrocardiography 06/16/2015 Left bundle branch block (LBBB) 06/16/2015 Abnormal thallium stress test 06/16/2015 Essential hypertension 06/16/2015 Tear of medial meniscus of knee 04/17/2015 Tear of lateral meniscus of knee 04/17/2015 Stress fracture of tibia 04/17/2015 Noise effect on inner ear 07/08/2014 Ear ringing 07/08/2014 Cervicalgia 09/21/2013 Lumbago 09/21/2013 Nerve root disorder 09/21/2013 Social History Tobacco Use Types Packs/Day Years Used Date Smoking Tobacco: Former Cigarettes 0.8 15 0 12/03/1994 - 12/03/2009 Smokeless Tobacco: Never Sex and Gender Information Value Date Recorded Sex Assigned at Not on file 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 Gender Identity Not on file Sexual Orientation Not on file Last Filed Vital Signs Vital Sign Reading Time Taken Comments Blood Pressure 129/84 04/12/2024 2:44 PM CDT Pulse 81 04/22/2023 1:35 PM CDT Temperature 36.2 C (97.2 F) 04/12/2024 2:44 PM CDT Respiratory Rate 16 03/12/2022 10:55 AM CDT Oxygen Saturation 98% 04/12/2024 2:44 PM CDT Inhaled Oxygen Concentration - - Weight 103 kg (227 lb) 04/12/2024 2:44 PM CDT Height 177.8 cm (5' 10 ) 04/12/2024 2:44 PM CDT Body Mass Index 32.57 04/12/2024 2:44 PM CDT Plan of Treatment Not on file Insurance Desti OPEN ACCESS [facility] CHOICE PLUS [employer] OPEN ACCESS [employer] Care Teams Revenue Cycle Specialist Relationship Specialty Start Date End Date Arminda Morrow DO PCP - General Family Medicine 02/18/22
--- OUTSIDE RECORDS SUMMARY | 2024-12-06 06:59 | XMS_ITS | Clinical Summary ---
Author Organization [facility] Chris Zurita Address [address] [place] [address] Care Team Providers Care Vending Machine Operator Name Role Phone TawnylizbethArminda ulloa Primary Care Provider +1- [phone] Allergies Active Allergy Reactions Criticality Noted Date Comments Codeine Rash,Swelling Medium 04/14/2018 Lisinopril Swelling Low 10/23/2023 Pravastatin Cough Low 10/23/2023 Medications aspirin (ECOTRIN EC) 81 mg Tablet, Delayed Release (E.C.) Take 1 Tablet by mouth daily. Active levothyroxine 25 mcg tablet Take 25 mcg by mouth daily. 11/05/2022 Active metFORMIN (GLUCOPHAGE) 500 mg tablet Take 500 mg by mouth 2 times daily. Active metoprolol tartrate (LOPRESSOR) 50 mg tablet 07/20/2021 Active rosuvastatin (CRESTOR) 40 mg tablet Take 1 Tablet by mouth daily. 04/28/2023 Active empagliflozin (JARDIANCE) 25 mg tablet Take by mouth daily in the morning. Active omeprazole (PriLOSEC) 40 mg Capsule, Delayed Release(E.C.) Take 40 mg by mouth daily. Active PARoxetine HCl (PAXIL) 20 mg tablet Take 20 mg by mouth daily. Active Active Problems No known active problems Family History Medical History Relation Name Comments Heart Disease Brother 3 Diabetes Father Heart Disease Father Heart Disease Mother Relation Name Status Comments Brother 1 Alive Brother 2 Alive Brother 3 Daughter Alive Father Mother Sister 1 Alive Sister 2 Alive Sister 3 Alive Son 1 Alive Son 2 Alive Son 3 Alive Social History Tobacco Use Types Packs/Day Years Used Date Smoking Tobacco: Former Cigarettes Q uit: 2012 Smokeless Tobacco: Never Alcohol Use Standard Drinks/Week Comments Yes 0 (1 standard drink = 0.6 oz pur e alcohol) Sex and Gender Information Value Date Recorded Sex Assigned at Not on file Legal Sex Male 12:56 PM 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 Gender Identity Not on file Sexual Orientation Not on file Last Filed Vital Signs Vital Sign Reading Time Taken Comments Blood Pressure 120/72 10/23/2023 2:39 PM 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 Pulse 72 10/23/2023 2:39 PM 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 Temperature 36 C (96.8 F) 10/23/2023 2:39 PM 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 Respiratory Rate 10 10/23/2023 2:39 PM 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 Oxygen Saturation 95% 10/23/2023 2:39 PM 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 Inhaled Oxygen Concentration - - Weight 110.7 kg (244 lb) 10/23/2023 2:39 PM 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 Height 177.8 cm (5' 10 ) 10/23/2023 2:39 PM 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 Body Mass Index 35.01 10/23/2023 2:39 PM 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 Plan of Treatment Health Maintenance Due Date Last Done Comments PNEUMOCOCCAL VACCINE 0-64 YEARS (1 of 2 - PCV) 971 DTAP/TDAP/TD VACCINES (1 - Tdap) 1984 HEPATITIS B VACCINES (1 of 3 - 19+ 3-dose series) 02/11 COLORECTAL SCREENING 2010 Colorectal Cancer Screening 2010 FIT-DNA Q 3 years 2010 FIT/FOBT Q 1 year 2010 Flex Sig/CT Colonography Q 5 years 2010 ZOSTER VACCINE (1 of 2) 2015 INFLUENZA VACCINE (#1) 2024 Insurance [employer] [facility] OPEN ACCESS Care Teams Vending Machine Operator Relationship Specialty Start Date End Date Arminda Morrow DO [address] [place] [address] PCP - General Family Practice 10/22/23
--- OUTSIDE RECORDS SUMMARY | 2024-12-06 06:59 | XMS_ITS | Encounter Summary ---
Author Organization [facility] Address [address] [place] [address] Phone Care Team Providers Care Tenon Machine Operator Name Role Phone Arminda Morrow DO Primary Care Provider [phone]- [phone] Encounter Details Date Type Department Care Team (Latest Contact Info) Description 02/08/2021 Orders Only [facility] Scanning, Provider Social History Tobacco Use Types Packs/Day Years Used Date Smoking Tobacco: Former Cigarettes 0.8 15 0 12/03/1994 - 12/03/2009 Smokeless Tobacco: Never Sex and Gender Information Value Date Recorded Sex Assigned at Not on file 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
--- OUTSIDE RECORDS SUMMARY | 2024-12-06 06:59 | XMS_ITS | Patient Health Summary ---
Author Organization [facility] Address [address] [place] [address] Care Team Providers Care Strategy Analyst Name Role Phone Chano Brown MD Primary Care Provider [phone] [facility],non-owned Affiliates and Associated Physician Practices is amultiple site organization consisting of ambulatory clinics and hospital sitesin [place], [place], [place] and [place]. This disclosure is being madepursuant to the Care Everywhere program and may not contain all information available regarding this patient. Last updated 18.[facility] Allergies * Codeine(Rash) -Medium Criticality Medications * Be aware that medications may not be up to date on this document. Alwaysverify current medications with the patient. * SIMVASTATIN PO * PAROXETINE HCL PO * TELMISARTAN PO * METOPROLOL SUCCINATE ER PO * Canagliflozin (INVOKANA PO) * ASPIRIN 81 PO * metFORMIN (GLUCOPHAGE) 500 MG tablet Take 500 mg by mouth 2 times daily with morning and evening meal * OMEPRAZOLE PO * benzonatate (TESSALON) 200 MG capsule(Started 04/14/2018) Take 1 capsule by mouth 3 times daily as needed for Cough Social History Tobacco Use Types Packs/Day Years [...] Mass Index 38.74 04/14/2018 9:53 AM CDT Procedures * STREP A SCREEN - POINT OF CARE (AMB) STL(Performed 04/14/2018) Performed for Strep pharyngitis Results * (ABNORMAL) STREP A SCREEN (04/14/2018 10:05 AM CDT) Strep A Rapid POCT Positive(A) Negative Strep A Internal Control Present Lot # [id number] Expiration Date 10 29 2019 Throat ENTIRE THROAT (SURFACE REGION OF NECK) / Unknown 04/14/2018 10:05 AM CDT Halina Sotomayor ELEMENTARY SUPERVISOR-CONVEYOR LINE BAKERY WORKER LAB - POINT OF CA RE ORDERABLES Care Teams Strategy Analyst Relationship Specialty Start Date End Date Chano Brown MD [address] [place] [address] PCP - General Family Medicine 04/14/18
--- OUTSIDE RECORDS SUMMARY | 2024-12-06 06:59 | XMS_ITS | Clinical Summary ---
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 11/25/2019 Overview (11/25/2019): Added automatically from request for surgery [id number] Frequent PVCs 11/25/2019 Overview (11/25/2019): Added automatically from request for surgery [id number] Obesity with body mass index 30 or [...] 09/21/2013 Lumbago 09/21/2013 Nerve root disorder 09/21/2013 Surgical History Surgery Date Site/Laterality Comments KNEE SURGERY Left INGUINAL HERNIA REPAIR CARDIAC CATHETERIZATION Medical History Medical History Date Comments Coronary artery disease Hypertension Hyperlipidemia Diabetes mellitus (HCC) CRISTAL (obstructive sleep apnea) LBBB (left bundle branch block) PVC's (premature ventricular contractions) DJD (degenerative joint disease) Reflux esophagitis Heart murmur as child Family History Medical History Relation Name Comments Hypertension Brother 1 Family history of hypertension - (Added by MARCO A Conv) Diabetes Brother 2 Family history of diabetes mellitus - (Added by TW Conv) Sudden Cardiac Brother 3 Family history of sudden cardiac - (Added by TW Conv) Diabetes Father Family history of diabetes mellitus - (Added by TW Conv) Heart attack Father Family history of heart attack - (Added by TW Conv) Hypertension Father Family history of hypertension - (Added by TW Conv) Sudden Cardiac Father Family history of sudden cardiac - (Added by TW Conv) Diabetes Mother Family history of diabetes mellitus - (Added by TW Conv) Heart attack Mother Family history of heart attack - (Added by TW Conv) Hypertension Mother Family history of hypertension - (Added by TW Conv) Sudden Cardiac Mother Family history of sudden cardiac - (Added by TW Conv) Hypertension Sister 1 Family history of hypertension - (Added by TW Conv) Diabetes Sister 2 Family history of diabetes mellitus - (Added by TW Conv) Sudden Cardiac Sister 3 Family history of sudden cardiac - (Added by TW Conv) Hypertension Son Family history of hypertension - (Added by TW Conv) Relation Name Status Comments Brother 1 Brother 2 Brother 3 Father Mother Sister 1 Sister 2 Sister 3 Son Social History Tobacco Use Types Packs/Day Years Used Date Smoking Tobacco: Former Cigarettes 0.8 15 0 12/03/1994 - 12/03/2009 Smokeless Tobacco: Never Sex and Gender Information Value Date Recorded Sex Assigned at Not on file 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 Gender Identity Not on file Sexual Orientation Not on file Obstetrics History Last Filed Vital Signs Vital Sign Reading [...] 04/12/2024 2:44 PM CDT Plan of Treatment Health Maintenance Due Date Last Done Comments Colon Cancer Screening-Colonoscopy 1965 Depression Screening 1965 Hepatitis C Screening 1965 Prostate Cancer Screening-PSA 1965 DTaP/Tdap/Td Vaccine (1 - Tdap) 1976 Hepatitis B Screening 1983 Regular Well Visit/Exam 18-64 1983 Pneumococcal vaccine <65 (1 of 2 - PCV) 1984 Zoster Vaccine (1 of 2) 2015 Influenza Vaccine (#1) 2024 06/29/2019 Insurance [employer] OPEN ACCESS [facility] HMO/PPO Address: [address] [address] [place] [address] [facility] OPEN ACCESS [employer] Care Teams Imagery Analyst Relationship Specialty Start Date End Date Arminda Morrow DO PCP - General Family Medicine 02/18/22
--- OUTSIDE RECORDS SUMMARY | 2024-12-06 06:59 | XMS_ITS | Encounter Summary ---
Author Organization [facility] Address [address] [place] [address] Phone Care Team Providers Care Cracking And Fanning Machine Operator Name Role Phone Arminda Morrow DO Primary Care Provider [phone] Encounter Details Date Type Department Care Team (Latest Contact Info) Description 01/29/2021 Orders Only [facility] Scanning, Provider Social History Tobacco Use Types Packs/Day Years Used Date Smoking Tobacco: Former Cigarettes 0.8 15 0 12/03/1994 - 12/03/2009 Smokeless Tobacco: Never Sex and Gender Information Value Date Recorded Sex Assigned at Not on file 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 Sex Male 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 Gender Identity Not on file Sexual Orientation Not on file documented as of this encounter Plan of Treatment Not on file documented as of this encounter Procedures Procedure Name Priority Date/Time Associated Diagnosis Comments SCAN - RADIOLOGY/IMAGING 01/29/2021 documented in this encounter Results * SCAN - RADIOLOGY/IMAGING (01/29/2021) Anatomical Region Laterality Modality Other us Provider Scanning Final Result documented in this encounter Visit Diagnoses Not on filedocumented in this encounter Care Teams Cracking And Fanning Machine Operator Relationship Specialty Start Date End Date Arminda Morrow DO PCP - General Family Medicine 02/18/22 documented as of this encounter
[2024-12-06 08:05] LABS: Hematocrit 46.1 % (42.0-52.0); Hemoglobin 15.5 g/dL (14.0-18.0); Mean Corpuscular HGB Conc 33.6 g/dl (32-36); Mean Corpuscular Hemoglobin 30.2 pg (26-34); Mean Corpuscular Volume 89.9 fl (80-100); Mean Platelet Volume 11.1 fl (7.4-10.4); Platelet Count Result 176 k/mm3 (150-375); Red Blood Count 5.13 M/mm3 (4.6-6.20); Red Cell Distribution Width 13.2 % (11.5-14.5)
[2024-12-06 08:19] LABS: Alanine Aminotransferase 22 U/L (6-50); Albumin Level 4.6 g/dL (3.5-5.1); Alkaline Phosphatase 59 U/L (38-126); Anion Gap 13 mmol/L (4-12); Aspartate Amino Transferase 23 U/L (17-59); Bilirubin,Total 1.1 mg/dL (0.2-1.3); Blood Urea Nitrogen 14 mg/dL (9-20); Calcium 9.8 mg/dL (8.4-10.2); Carbon Dioxide 25 mmol/L (22-30); Chloride 102 mmol/L (98-107); Cholesterol 112 mg/dL (0-200); Estimated Glomerular Filt Rate > 60; Glucose 106 mg/dL (65-110); HDL Direct 44 mg/dL; Potassium 3.8 mmol/L (3.4-5.0); Sodium 140 mmol/L (137-145); Triglycerides 111 mg/dL (<150)
[2024-12-06 08:30] LABS: LDL Cholesterol Direct 46 mg/dL
[2024-12-06 08:33] LABS: Free T4 Free Thyroxine 0.88 ng/dL (0.78-2.19)
[2024-12-06 08:47] LABS: Prostate Specific Antigen 2.1 ng/mL (< OR = 4.0)
[2024-12-06 10:30] LABS: Creatinine Urine 79.2 mg/dL
[2024-12-06 10:30] LABS: Hemoglobin A1C 5.8 % (<5.7)
[2024-12-06 10:35] LABS: Microalbumin Urine Random 18.2 mg/L (0-16.7)
== END 2024-12-06 06:53 | disposition home or self-care (01) ==
PROVIDERS: PCP Family Medicine; Visit Provider Nurse Practitioner
DX: Z00.00 Encounter for general adult medical examination without abnormal findings (principal); Z12.5 Encounter for screening for malignant neoplasm of prostate; E03.9 Hypothyroidism, unspecified; E11.9 Type 2 diabetes mellitus without complications
CPT/HCPCS: 36415; 80053; 80061; 82043; 83036; 84153; 84439; 84443; 85027; G0103

== ENCOUNTER 2025-02-08 15:11 | Outpatient (CLI) | payer OTHER, SELFPAY ==
[2025-02-08 16:03] LABS: Anion Gap 11 mmol/L (4-12); Blood Urea Nitrogen 15 mg/dL (9-20); Calcium 8.8 mg/dL (8.4-10.2); Carbon Dioxide 23 mmol/L (22-30); Chloride 104 mmol/L (98-107); Estimated Glomerular Filt Rate > 60; Glucose 143 mg/dL (65-110); Potassium 3.6 mmol/L (3.4-5.0); Sodium 138 mmol/L (137-145)
== END 2025-02-08 15:12 | disposition home or self-care (01) ==
LOC: ANHSURGERY 15:14
PROVIDERS: Anesthesiology; PCP Family Medicine; Visit Provider Plastic Surgery
DX: E11.9 Type 2 diabetes mellitus without complications (principal)
CPT/HCPCS: 36415; 80048

== ENCOUNTER 2025-02-16 00:23 | Day surgery (SDC) | payer OTHER, SELFPAY ==
[2025-02-04 12:35] VITALS: BMI 32.3
--- NOTE | 2025-02-04 12:41 | PC.NURSE ---
Report to the Outpatient Waiting Room, entrance under the green pavilion located off [facility], at time _1030_ on date _[id number]_. Planned Procedure Time: _1230_.? Time changes happen often and if your time is changed the preop area will call you the afternoon before. - You and your visitor will be asked to self-screen and do not enter if you have any COVID symptoms. Please call surgeon if you need to reschedule. - A mask is optional within the hospital at this time. May have clear liquids (water, carbonated beverages, clear teas, apple juice) until 430am prior to surgery with a maximum of 20 ounces. - No food from midnight until time of surgery and no smoking, or chewing tobacco (or any form of nicotine). No chewing gum, candy or mints. Take only the following medications with a SIP of water on the morning of surgery: _Metoprolol, Levothyroxine and paroxetine. DO NOT STOP ANY OF YOUR OTHER PRESCRIPTION MEDICATIONS PRIOR TO SURGERY EXCEPT THE FOLLOWING Hold all vitamins and supplements for 3 days per anesthesiologist. Medications to discontinue per physician Please inquire of Dr Barrett if need to hold Aspirin. Date to take last dose Please no make-up, nail estonian, hairspray, perfume, deodorant, or body powder the day of surgery.? No jewelry (including any body piercings) or valuables the day of surgery, leave them at home.? Please take a shower or bath the night before, or the morning of, surgery with an antibacterial soap.? Wear comfortable, loose fitting clothing.? - Jewelry must be removed prior to entering the operating room.? Rings and piercings that are not removed may be cut off. - The hospital will not accept responsibility for valuables.? - Please leave all valuables, including medications, at home the day of surgery. If you are going home after surgery, a licensed pile driver engineer must drive you home.? - NO public transportation without another adult if you receive anesthesia. - We recommend that an adult stay with you for 24 hours following discharge. - We also recommend that you do not drive, make important decision, drink alcoholic beverages, or take any drugs that were not prescribed by your health care provider for at least 24 hours after your discharge time. Follow any additional instructions given to you from your surgeon. Telephone instructions given to __Ray___and asked if any additional questions and then verbalized understanding. Patient advised to call surgeon office or pre surgery nurse liaison [phone] if any additional questions.
--- OUTSIDE RECORDS SUMMARY | 2025-02-16 00:25 | XMS_ITS | Encounter Summary ---
Author Organization [facility] Address [address] [place] [address] Phone Care Team Providers Care Fashion Supervisor Name Role Phone Arminda Morrow DO Primary Care Provider [phone]- [phone] Encounter Details Date Type Department Care Team (Latest Contact Info) Description 02/08/2021 Orders Only [facility] Scanning, Provider Social History Tobacco Use Types Packs/Day Years Used Date Smoking Tobacco: Former Cigarettes 0.8 15 0 12/03/1994 - 12/03/2009 Smokeless Tobacco: Never Sex and Gender Information Value Date Recorded Sex Assigned at Not on file Legal Sex Male 3:47 AM FILTER 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
--- OUTSIDE RECORDS SUMMARY | 2025-02-16 00:25 | XMS_ITS | Encounter Summary ---
Author Organization [facility] Address [address] [place] [address] Phone Care Team Providers Care Glaze Mixer Name Role Phone Arminda Morrow DO Primary Care Provider +1- [phone] Encounter Details Date Type Department Care Team (Latest Contact Info) Description 10/19/2021 Orders Only [facility] Scanning, Provider Social History Tobacco Use Types Packs/Day Years Used Date Smoking Tobacco: Former Cigarettes 0.8 15 0 12/03/1994 - 12/03/2009 Smokeless Tobacco: Never Sex and Gender Information Value Date Recorded Sex Assigned at Not on file 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
--- OUTSIDE RECORDS SUMMARY | 2025-02-16 00:25 | XMS_ITS | Clinical Summary ---
Author Organization [facility] [employer] Address [address] [address] Care Team Providers Care Tallow Refiner Name Role Phone Heri Brown MD Primary Care Provider [phone] Source Comments [facility] [employer],non-owned Affiliates and Associated Physician Practices is amultiple site organization consisting of ambulatory clinics and hospital sitesin [place], [place], [place] and [place]. This disclosure is being madepursuant to the Care Everywhere program and may not contain all information available regarding this patient. Last updated 18.[facility] [employer] Allergies Active Allergy Reactions Criticality Noted Date Comments Codeine Rash Medium 04/14/2018 Medications * Be aware that medications may not be up to date on this document. Alwaysverify current medications with the patient. SIMVASTATIN PO Activ e PAROXETINE HCL PO Active TELMISARTAN PO Activ e METOPROLOL SUCCINATE ER PO Acti ve Canagliflozin (INVOKANA PO) Active ASPIRIN 81 PO Active metFORMIN (GLUCOPHAGE) 500 MG tablet Take 500 mg by mouth 2 times daily with morning and evening meal Active OMEPRAZOLE PO Active benzonatate (TESSALON) 200 MG capsuleIndicati ons:Cough Take 1 capsule by mouth 3 times [...] at Not on file Legal Sex Male 7:08 AM CDT Gender Identity Not on file Sexual Orientation [...] VACCINE ( - 2023-2 5 season) 2024 DEPRESSION SCREENING 10/13/2024 INFLUENZA VACCINE (Season Ended) 2025 HIB VACCINE Aged Out No longer eligi ble based on patient's age to complete this topic HPV VACCINE Aged Out No longer eligi ble based on patient's age to complete this topic MENINGOCOCCAL (Group B) VACC INE SHARED DECISION-MAKING Aged Out No longer eligibl e based on patient's age to complete this topic MENINGOCOCCAL GROUPS A/C/Y/W VACCINE Aged Out No longer eligible b ased on patient's age to complete this topic Insurance [facility] Member Subscriber Plan / Payer (Ef fective for All Dates) Name:Heri Aviles Relation to Subscriber:Self Name:TraciSkinnyHeri Payer ID:Not on file Type:HMO Address: [place] [id number] SELF PAY NO INSURANCE Member Subscriber Plan / Payer (Ef fective for All Dates) Name:Heri Aviles Member ID:Not on file Relation to Subscriber:Not on file Name:HERI AVILES Subscriber ID:Not on file Address: [address] [place] [address] Payer ID:Not on file Group ID:Not on file Type:Self Pay Address: [place], [place] [employer] SELF PAY NO INSURANCE Member Subscriber Plan / Payer (Ef fective for All Dates) Name:Heri Aviles Member ID:Not on file Relation to Subscriber:Not on file Name:HERI AVILES Subscriber ID:Not on file Address: [address] [place] [address] Payer ID:Not on file Group ID:Not on file Type:Self Pay Address: [place], [place] [employer] Member Subscriber Plan / Payer (Ef fective for All Dates) Name:Heri Aviles Relation to Subscriber:Self Name:Heri Aviles Payer ID:Not on file Type:HMO Address: [place] [id number] SELF PAY NO INSURANCE Member Subscriber Plan / Payer (Ef fective for All Dates) Name:Heri Aviles Member ID:Not on file Relation to Subscriber:Not on file Name:HERI AVILES Subscriber ID:Not on file Address: [address] [place] [address] [place] [address] Payer ID:Not on file Group ID:Not on file Type:Self Pay Address: [place], [place] Care Teams Tallow Refiner Relationship Specialty Start Date End Date Heri Brown MD [address] [place] [address] PCP - General Family Medicine 04/14/18
--- OUTSIDE RECORDS SUMMARY | 2025-02-16 00:25 | XMS_ITS | Encounter Summary ---
Author Organization [facility] Address [address] [place] [address] Phone Care Team Providers Care Customer Engineering Specialist Name Role Phone Arminda Morrow DO Primary Care Provider [phone]- [phone] Encounter Details Date Type Department Care Team (Latest Contact Info) Description 01/29/2021 Orders Only [facility] Scanning, Provider Social History Tobacco Use Types Packs/Day Years Used Date Smoking Tobacco: Former Cigarettes 0.8 15 0 12/03/1994 - 12/03/2009 Smokeless Tobacco: Never Sex and Gender Information Value Date Recorded Sex Assigned at Not on file Legal Sex Male 3:47 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
--- OUTSIDE RECORDS SUMMARY | 2025-02-16 00:25 | XMS_ITS | Encounter Summary ---
Author Organization [facility] Address [address] [place] [address] Phone Care Team Providers Care Tablet Machine Operator Name Role Phone Arminda Morrow DO Primary Care Provider [phone]- [phone] Encounter Details Date Type Department Care Team (Latest Contact Info) Description 12/06/2024 Orders Only [facility] Scanning, Provider Social History Tobacco Use Types Packs/Day Years Used Date Smoking Tobacco: Former Cigarettes 0.8 15 0 12/03/1994 - 12/03/2009 Smokeless Tobacco: Never Sex and Gender Information Value Date Recorded Sex Assigned at Not on file 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 Gender Identity Not on file Sexual Orientation Not on file documented as of this encounter Plan of Treatment Not on file documented as of this encounter Procedures Procedure Name Priority Date/Time Associated Diagnosis Comments SCAN - LABS 12/06/2024 documented in this encounter Results * SCAN - LABS (12/06/2024) us Provider Scanning Final Result documented in this encounter Visit Diagnoses Not on filedocumented in this encounter Care Teams Tablet Machine Operator Relationship Specialty Start Date End Date Arminda Morrow DO PCP - General Family Medicine 02/18/22 documented as of this encounter
--- OUTSIDE RECORDS SUMMARY | 2025-02-16 00:25 | XMS_ITS | Clinical Summary ---
Author Organization [facility] Chris Zurita Address [address] [place] [address] Care Team Providers Care Unarmed Security Officer Name Role Phone TawnylizbethArminda ulloa Primary Care Provider +1- [phone] Allergies Active Allergy Reactions Criticality Noted Date [...] on file Legal Sex Male 12:56 PM PHYSICIANS ASSISTANT Gender Identity Not on file Sexual Orientation Not on file Last Filed Vital Signs Vital Sign Reading Time Taken Comments Blood Pressure 120/72 10/23/2023 2:39 PM PHYSICIANS ASSISTANT Pulse 72 10/23/2023 2:39 PM PHYSICIANS ASSISTANT Temperature 36 C (96.8 F) 10/23/2023 2:39 PM PHYSICIANS ASSISTANT Respiratory Rate 10 10/23/2023 2:39 PM PHYSICIANS ASSISTANT Oxygen Saturation 95% 10/23/2023 2:39 PM PHYSICIANS ASSISTANT Inhaled Oxygen Concentration - - Weight 110.7 kg (244 lb) 10/23/2023 2:39 PM PHYSICIANS ASSISTANT Height 177.8 cm (5' 10 ) 10/23/2023 2:39 PM PHYSICIANS ASSISTANT Body Mass Index 35.01 10/23/2023 2:39 PM PHYSICIANS ASSISTANT Plan of Treatment Health Maintenance Due Date Last Done Comments DTAP/TDAP/TD VACCINES (1 - Tdap) 1984 HEPATITIS B VACCINES (1 of 3 - 19+ 3-dose series) 02/11 COLORECTAL SCREENING 2010 Colorectal Cancer Screening 2010 FIT-DNA Q 3 years 2010 FIT/FOBT Q 1 year 2010 Flex Sig/CT Colonography Q 5 years 2010 ZOSTER VACCINE (1 of 2) 2015 INFLUENZA VACCINE (#1) 2024 Insurance [employer] [facility] [place] Care Teams Unarmed Security Officer Relationship Specialty Start Date End Date Arminda Morrow DO [address] [facility] [address] [place] [address] PCP - General Family Practice 10/22/23
--- OUTSIDE RECORDS SUMMARY | 2025-02-16 00:25 | XMS_ITS | Clinical Summary ---
Author Organization [facility] Cherry Atkins nsion Address [address] [facility] [address] [place] [address] Care Team Providers Care Chartered Financial Analyst Name Role Phone Arminda Morrow DO Primary Care Provider +1- [phone] Allergies Active Allergy Reactions Criticality Noted Date Comments Codeine Rash Medium Lisinopril Swelling Medium 10/23/2023 Pravastatin Cough Low 10/23/2023 Medications aspirin 81 mg tablet take 1 tablet daily Active metFORMIN (GLUCOPHAGE) 500 mg tablet Take 1 tablet (500 mg total) by mouth 2 (two) times a day with meals Active omeprazole (PriLOSEC) 40 mg capsule 1 capsule (40 mg total) daily 8 Active telmisartan (MICARDIS) 80 mg tablet 1 tablet (80 mg total) daily 8 Active metoprolol tartrate (LOPRESSOR) 50 mg immediate release tablet Take 1 tablet (50 mg total) by mouth 2 (two) times a day 1 Active Jardiance 10 mg tablet Take 1 tablet (10 mg total) by mouth daily 2 Active tamsulosin (FLOMAX) 0.4 mg extended release capsule 2 Active levothyroxine (SYNTHROID) 25 mcg tablet Take 1 tablet (25 mcg total) by mouth daily 3 Active rosuvastatin (CRESTOR) 40 mg tablet Take 1 tablet by mouth once daily 90 tablet 1 3 Active tirzepatide (Mounjaro) 10 mg/0.5 mL pen injector injection Inject 0.5 mL (10 mg total) under the skin every 7 days Active oxyBUTYnin (DITROPAN) 5 mg tablet Take 1 tablet (5 mg total) by mouth daily 5 Active PARoxetine (PAXIL) 20 mg tablet Take 1 tablet (20 mg total) by mouth daily 5 Active PARoxetine (PAXIL) 10 mg tablet TK 1 T PO D 0 02/02/20 25 Discontinued Active Problems Problem Noted Date Diagnosed Date Primary osteoarthritis of left knee 02/01/2025 Effusion of left knee 02/01/2025 Chronic pain of left knee 02/01/2025 Chest tightness 11/25/2019 Overview (11/25/2019): Added automatically from request for surgery [id number] Coronary artery disease of n ative artery of [place] heart with stable angina pectoris 11/25/2019 Overview (11/25/2019): Added automatically from request for surgery [id number] Frequent PVCs 11/25/2019 Overview (11/25/2019): Added automatically from request for surgery [id number] Obesity with body mass index 30 or [...] 09/21/2013 Lumbago 09/21/2013 Nerve root disorder 09/21/2013 Encounters Date Type Department Care Team Description 02/01/2025 7:42 AM CDT - 02/01/2025 11:59 PM CDT Hospital Encounter [facility] [address] [place] [address] Left knee pain, unspecified chronicity Discharge Disposition: Discharge to home or self care 02/01/2025 7:40 AM CDT Office Visit [facility] Orthopaedic Surgery [address] [facility] [address] [place] [address] Drew Suarez IV, MD Primary osteoarthritis of left knee (Primary Dx); Effusion of left knee; Chronic pain of left knee 01/17/2025 3:00 PM CDT Office Visit [facility] Cardiology [address] [facility] [facility] [address] [place] [address] Mohan Hull MD Chronic coronary artery disease (Primary Dx) 12/06/2024 Orders Only [facility] Scanning, Provider from Last 3 Months Surgical History Surgery Date Site/Laterality Comments KNEE SURGERY Left INGUINAL HERNIA REPAIR CARDIAC CATHETERIZATION Medical History Medical History Date Comments Coronary artery disease Hypertension Hyperlipidemia Diabetes mellitus (HCC) CRISTAL (obstructive sleep apnea) LBBB (left bundle branch block) PVC's (premature ventricular contractions) DJD (degenerative joint disease) Reflux esophagitis Heart murmur as child GERD (gastroesophageal reflux disease) Anxiety Family History Medical History Relation Name Comments Heart attack Brother 1 Hypertension Brother 1 Family history of hypertension - (Added by TW Conv) Diabetes Brother 2 Family history of diabetes mellitus - (Added by TW Conv) Sudden Cardiac Brother 3 Family history of sudden cardiac - (Added by TW Conv) Diabetes Father Drew Aviles Family history of diabetes mellitus - (Added by TW Conv) Heart attack Father Drew Aviles Family history of heart attack - (Added by TW Conv) Hypertension Father Drew Aviles Family history of hypertension - (Added by TW Conv) Sudden Cardiac Father Drew Aviles Family history of sudden cardiac - (Added [...] cardiac - (Added by TW Conv) Diabetes Son Hypertension Son Family history of hypertension - (Added by TW Conv) Relation Name Status Comments Brother 1 Brother 2 Brother 3 Father Drew Aviles Mother Sister 1 Sister 2 Sister 3 Son Social History Tobacco Use Types Packs/Day Years Used Date Smoking Tobacco: Former Cigarettes 0.8 15 0 12/03/1994 - 12/03/2009 Smokeless Tobacco: Never Tobacco Cessation:Counseling Given: Not Answered Sex and Gender Information Value Date Recorded Sex Assigned at Not on file 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 Gender Identity Not on file Sexual Orientation Not on file 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 Not on file Not on file Obstetrics History Last Filed Vital Signs Vital Sign Reading Time Taken Comments Blood Pressure 139/81 01/17/2025 2:40 PM CDT Pulse 73 01/17/2025 2:40 PM CDT Temperature 36.3 C (97.4 F) 01/17/2025 2:40 PM CDT Respiratory Rate 16 03/12/2022 10:5 5 AM CDT Oxygen Saturation 98% 01/17/2025 2:4 0 PM CDT Inhaled Oxygen Concentration - - Weight 102.1 kg (225 lb) 02/01/2025 8:1 8 AM CDT patient reported Height 177.8 cm (5' 10 ) 02/01/2025 8:1 8 AM CDT patient reported Body Mass Index 32.28 02/01/2025 8:18 AM CDT Plan of Treatment Health Maintenance Due Date Last Done Comments Colon Cancer Screening-Colonoscopy 1965 Depression Screening 1965 Hepatitis C Screening 1965 Prostate Cancer Screening-PSA 1965 DTaP/Tdap/Td Vaccine (1 - Tdap) 1976 Hepatitis B Screening 1983 Regular Well Visit/Exam 18-64 1983 Pneumococcal vaccine <65 (1 of 2 - PCV) 1984 Zoster Vaccine (1 of 2) 2015 Influenza Vaccine (Season Ended) 2025 06/29/20 19 Procedures Procedure Name Priority Date/Time Associated Diagnosis Comments XR KNEE LEFT 3 VIEWS Schedule Routine, Read Routine (OP Routine) 02/01/2025 7:47 AM CDT Left knee pain, unspecified chronicity SCAN - LABS 12/06/2024 from Last 3 Months Results * XR Knee Left 3 Views (02/01/2025 7:47 AM CDT) Anatomical Region Laterality Modality Lower Extremities, Knee Left Computed Radiography 02/01/2025 7:54 AM CDT Impressions 02/01/2025 7:54 AM CDT 1. Severe medial compartment predominant tricompartmental left knee osteoarthritis. Electronically signed by: Serjio Tolbert M.D. Narrative 02/01/2025 7:54 AM CDT EXAMINATION: XR KNEE LEFT 3 VIEWS HISTORY: left knee pain FINDINGS: 3 view examination of the left knee is read without comparison. There is severe medial compartment predominant tricompartmental osteoarthritis. Small joint effusion. No fracture or dislocation. Scattered vascular calcifications. Procedure Note Serjio Maldonado MD - 02/01/2025 EXAMINATION: XR KNEE LEFT 3 VIEWS HISTORY: left knee pain FINDINGS: 3 view examination of the left knee is read without comparison. There is severe medial compartment predominant tricompartmental osteoarthritis. Small joint effusion. No fracture or dislocation. Scattered vascular calcifications. IMPRESSION: 1. Severe medial compartment predominant tricompartmental left knee osteoarthritis. Electronically signed by: Serjio Tolbert M.D. Drew Suarez IV, MD IMG XR PROCEDURES Fin al Result * SCAN - LABS (12/06/2024) us Provider Scanning Final Result from Last 3 Months Insurance [employer] OPEN ACCESS [facility] CHOICE PLUS CIGNA OPEN ACCESS CIG[employer] OPEN ACCESS Care Teams Chartered Financial Analyst Relationship Specialty Start Date End Date Arminda Morrow DO PCP - General Family Medicine 02/18/22
--- OUTSIDE RECORDS SUMMARY | 2025-02-16 00:25 | XMS_ITS | Continuity of Care Document ---
Author Organization [facility] Address [address] [place] [address] [place] [address] Phone Care Team Providers Care Environmental Consultant Name Role Phone Bashir Alford MD Unavailable Unavailable Advance Directives Directive Yes / No Effective Date File Name No Information Encounters Encounter Description Practice Location Reason(s) For Visit Diagnoses Date Provider Providers Copied on Encounter [facility], [address], [place], [place], [id number], [place] tel:[phone] [facility] No Information 0 [address]. [address] [facility] [address], [place], [place], [id number], [place]. tel:[phone] Family History Family Member Type Diagnosis Age At Onset No Information Payers Payer name Insurance type Covered green party ID Authoriza tion(s) No Information Social History [...]
--- OUTSIDE RECORDS SUMMARY | 2025-02-16 00:25 | XMS_ITS | Referral Summary ---
Author Organization [facility] Cherry Atkins nsion Address [address] [facility] [place] [address] Care Team Providers Care Rn Pediatric Icu Name Role Phone Arminda Morrow DO Primary Care Provider [phone]- [phone] Encounters Date Type Department Care Team Description 02/01/2025 7:42 AM CDT - 02/01/2025 11:59 PM CDT Hospital Encounter [facility] [address] [place] [address] Left knee pain, unspecified chronicity Discharge Disposition: Discharge to home or self care 02/01/2025 7:40 AM CDT Office Visit [facility] Orthopaedic Surgery [address] [place] [address] Drew Suarez IV, MD Primary osteoarthritis of left knee (Primary Dx); Effusion of left knee; Chronic pain of left knee 01/17/2025 3:00 PM CDT Office Visit [facility] Cardiology [address] [facility] [address] [facility] [place] [address] Mohan Hull MD Chronic coronary artery disease (Primary Dx) 12/06/2024 Orders Only [facility] Scanning, Provider from Last 3 Months Allergies Active Allergy Reactions Criticality Noted Date [...] (11/25/2019): Added automatically from request for surgery [id number] Coronary artery disease of n ative artery of [place] heart with stable angina pectoris 11/25/2019 Overview (11/25/2019): Added automatically from request for surgery [id number] Frequent PVCs 11/25/2019 Overview (11/25/2019): Added automatically from request for surgery [id number] Obesity with body mass index 30 or [...] on file 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 Electronically signed by: Serjio Tolbert M.D. us Drew Suarez IV, MD IMG XR PROCEDURES Fin al Result * SCAN - LABS (12/06/2024) us Provider Scanning Final Result from Last 3 Months Insurance [employer] [place] [address] [place] [address] CHOICE PLUS CIGNA OPEN ACCESS CIGNA [employer] OPEN ACCESS Care Teams Rn Pediatric Icu Relationship Specialty Start Date End Date Arminda Morrow DO PCP - General Family Medicine 02/18/22
--- NOTE | 2025-02-16 06:54 | WPDHPUPDATE1 ---
History and Physical Update Update Date/Time: 02/16/25 06:54 Patient seen and examined in pre-operative holding area. No interval change in medical history or symptoms. Patient recalls previous discussion of benefits and alternatives to procedure. Continues to desire to proceed with right breast mass excision . Reviewed procedure, post-op expectations and risks including but not limited to bleeding, infection, injury to tendon/nerve/vessel, decreased hand function, stiffness, RSD, no change or worsening of symptoms, recurrence. I discussed the possible use of assistants and their participation in the case. Patient stated understanding and signed the consent form wishing to proceed.
--- NOTE | 2025-02-16 06:55 | P.OP_ITS ---
Procedure Note - Detailed Date of Procedure 02/16/25 Pre-op Diagnosis Right Breast mass Post-op Diagnosis Same Procedure Performed right breast mass excision Surgeon Luz Barrett MD Boiler Tenders Supervisor nenita villa pa-c Anesthesia MAC Description of Procedure Patient was seen in the preoperative holding area where the right breast mass was palpated and marked and the consent form was signed. Patient was taken back to the operating room on the stretcher in the supine position. Time-out was performed with Anesthesia, surgeon, and staff agreeing on patient's name, site, and surgery to be performed. SCDs were placed on the lower extremities and inflated. Antibiotics were given IV. After general anesthesia was administered there are right breast was prepped and draped in usual sterile fashion. I injected 15 cc of 1% lidocaine with epinephrine and 0.5% Marcaine plain for local anesthesia. I proceeded with making a transverse incision lateral to the nipple-areolar complex flex and extending superiorly over the nipple-areolar complex through skin and dermis with 15 blade scalpel. Bovie cautery was used to go through subcutaneous tissue and through Kumar's fascia as the mass appeared to be below this layer. The mass was identified and I proceeded with circumferential dissection of this mass with a combination of Metzenbaum scissors as well as Bovie cautery. The mass was adherent to pectoralis majjor and bovie was used to dissect mass from between the muscle fibers. Once the mass was excised I irrigated with normal saline. Closure with 3-0 Vicryl for deep and dermal closure was performed followed by 4-0 Monocryl for subcuticular closure. The mass measured 7x7 cm in diameter. A dressing of Mastisol, Steri-Strips, 4 x 4, Tegaderm, ABD and a chest binder was then applied. The patient was awakened from anesthesia and transferred to the recovery room in stable condition. Complications: None Estimated blood loss: 5 cc Disposition: Patient tolerated the procedure well and will be going home later today Nenita Villa PA-C was essential for positioning, retraction, closure and dressing placement [facility] Billing Surgery - Charge Forward: Surgery Billing ([id number] for nenita)
[2025-02-16 08:05] VITALS: BP 119/68; PULSE 66; RESP 16; TEMP 36.4; O2SAT 98
[2025-02-16] MEDS: LACTATED RINGERS 1,000 ML 30 ML IV CONT (08:20)
[2025-02-16 08:29] LABS: Glucose Point of Care 104 mg/dl (65-105)
--- NOTE | 2025-02-16 09:02 | P.PNAN_ITS ---
Anes - Initial Pre Proc Eval Procedure: Operation Date: 02/16/25 09:45 Proposed Procedures p Excision Right Breast Mass - Luz Barrett MD Date/Time: 02/16/25 09:02 Surgeon: Luz Barrett MD Pre Op Diagnosis: Right Breast Lipoma Patient Data Age: 59 Gender: M Height: 1.78 m Weight: 104.1 kg Last Vital Signs Temp 36.4 C 02/16/25 08:05 Pulse 66 02/16/25 08:05 Resp 16 02/16/25 08:05 BP 119/68 02/16/25 08:05 Pulse Ox 98 02/16/25 08:05 O2 Del Method Room Air 02/16/25 08:05 Allergies Allergy/AdvReac Type Severity Reaction Status Date / Time codeine Allergy Unknown Rash Verified 02/16/25 08:21 lisinopril Allergy Unknown cough Verified 02/16/25 08:21 pravastatin Allergy Unknown edema both Verified 02/16/25 08:21 LE Home Medications ?Medication ?Instructions ?Recorded ?Confirmed ?Type aspirin 81 mg tablet,delayed 81 mg PO DAILY 12/06/19 02/16/25 History release simethicone 80 mg chewable tablet 80 mg PO BID PRN Gastric Reflux 04/29/23 02/04/25 History (Gas Relief (simethicone)) omeprazole 40 mg capsule,delayed See Rx Instructions .Route 03/01/24 02/16/25 Rx release .COMPLEX #180 caps clobetasol 0.05 % topical cream 1 applic topical BID #30 grams 04/19/24 02/16/25 Rx levothyroxine 50 mcg tablet 50 mcg PO DAILY #90 tabs 10/25/24 02/04/25 Rx metoprolol tartrate 50 mg tablet 50 mg PO BID #180 tabs 11/01/24 02/16/25 Rx paroxetine HCl 20 mg tablet See Rx Instructions .Route 11/01/24 02/16/25 Rx .COMPLEX #90 tabs rosuvastatin 40 mg tablet 40 mg PO DAILY #90 tabs 11/01/24 02/16/25 Rx empagliflozin 25 mg tablet 25 mg PO QAM #90 tabs 11/16/24 02/16/25 Rx telmisartan 80 mg tablet See Rx Instructions .Route 12/13/24 02/16/25 Rx .COMPLEX #90 tabs oxybutynin chloride 5 mg tablet 5 mg PO DAILY #30 tabs 01/25/25 02/16/25 Rx tirzepatide 10 mg/0.5 mL See Rx Instructions .Route 02/07/25 02/16/25 Rx subcutaneous pen injector .COMPLEX #4 mL (Mounjaro) metformin 500 mg tablet See Rx Instructions .Route 02/14/25 Rx .COMPLEX #360 tabs tramadol 50 mg tablet 50 mg PO Q6H PRN pain #16 tabs 02/16/25 Rx Laboratory Tests 02/16/25 08:27 POC Capillary Glucose 104 mg/dl (65-105) Patient hx anesthesia problems: none Family hx anesthesia problems: none Results Review: All pre-operative results and documents have been reviewed as part of the pre- operative evaluation. [facility] Past Medical History Medical History Knee injury Abnormal colonoscopy Surgical History Surgical History History of esophagogastroduodenoscopy (EGD) Family History Family History Father Diabetes mellitus Hypertension Family history of elevated blood lipids Mother Hypertension Sibling Hypertension Family history of elevated blood lipids Other Family history of cardiovascular disease Social History Social History Smoking packs per day: 0.5 Smoking cigarettes per day: 10.0 Years smoked: 10 Smoking pack-years: 5.00 Smoking status: Former smoker Tobacco type: cigarettes Smoking end date: 10/13/11 Alcohol intake: current Drinks per week: 12 Substance use: never Substance use type: does not use Do You Feel Safe in your Home?: Yes Lack of Transportation: No Lack of Food: Never True Current Housing: I Have Housing Concerned About Future Housing: No Difficulty Paying Gas/Electric Bills: No Difficulty Paying for Meds: No Currently Unemployed: No Education: Associate Degree Difficulty w/ Childcare or Family Care: No Living arrangements: with family Gender identity (if verbalized by the patient): Male Spiritual care concerns: No Anes - Eval Final PreProcedure Day of Procedure 02/16/25 09:02 Patient weight: normal Heart: regular rate and rhythm Lungs: clear to auscultation Airway: Mallampati scale class II Neurological: alert and oriented Last oral intake: >/= 8 hours ASA classification: III Emergent: no Anesthetic plan: proceed Anesthesia type and monitoring: general GIVS and standard monitoring Results Review: All pre-operative results and documents have been reviewed as part of the pre- operative evaluation. Informed Consent: The patient's anesthetic plan and its attendant risks and benefits were discussed with the patient/family/POA. Questions were solicited and answers provided to the satisfaction of the patient/family/POA.
[2025-02-16] MEDS: ceFAZolin 2 GM/D5W 50 ML 2 GM/50 ML BAG IVPB (09:48)
[2025-02-16] MEDS: LIDO 1%/EPINEPHRINE 1:100,000 20 ML VIAL 30 ML INFILTRATE (10:01)
[2025-02-16 10:28] VITALS: BP 104/48; PULSE 76; RESP 16; O2SAT 96
[2025-02-16 10:38] LABS: Glucose Point of Care 86 mg/dl (65-105)
[2025-02-16 10:55] VITALS: BP 105/68; PULSE 68; RESP 16
== END 2025-02-16 11:05 | disposition home or self-care (01) ==
PROVIDERS: Visit Provider Plastic Surgery
PROC: (CPT 21554; principal; 2025-02-16 09:45)
DX: D17.1 Benign lipomatous neoplasm of skin and subcutaneous tissue of trunk (principal); Z79.82 Long term (current) use of aspirin; Z79.84 Long term (current) use of oral hypoglycemic drugs; Z79.85 Long-term (current) use of injectable non-insulin antidiabetic drugs; Z79.891 Long term (current) use of opiate analgesic; Z87.891 Personal history of nicotine dependence; Z82.49 Family history of ischemic heart disease and other diseases of the circulatory system
CPT/HCPCS: 21554; 82948; 88304; J0690; J2003; J2004; J2250; J2405; J2704; J3010; J7120

== ENCOUNTER 2025-04-22 06:39 | Outpatient (CLI) | payer OTHER, SELFPAY ==
--- OUTSIDE RECORDS SUMMARY | 2025-04-22 06:42 | XMS_ITS | Clinical Summary ---
Author Organization [facility] Cherry Atkins nsion Address [address] [place] [address] Care Team Providers Care Generation Technician Name Role Phone Arminda Morrow DO Primary Care Provider [phone]- [phone] Allergies Active Allergy Reactions Criticality Noted Date [...] tablet (80 mg total) daily 04/30/2018 Active metoprolol tartrate (LOPRESSOR) 50 mg immediate release tablet Take 1 tablet (50 mg total) by mouth 2 (two) times a day 07/20/2021 Active Jardiance 10 mg tablet Take 1 tablet (10 mg total) by mouth daily 02/13/2022 Active tamsulosin (FLOMAX) 0.4 mg extended release capsule 09/09/2022 Act margret levothyroxine (SYNTHROID) 25 mcg tablet Take 1 tablet (25 mcg total) by mouth daily 11/05/2022 Active rosuvastatin (CRESTOR) 40 mg tablet Take 1 tablet by mouth once daily 90 tablet 1 04/28/2023 Active tirzepatide (Mounjaro) 10 mg/0.5 mL pen injector injection Inject 0.5 mL (10 mg total) under the skin every 7 days Active oxyBUTYnin (DITROPAN) 5 mg tablet Take 1 tablet (5 mg total) by mouth daily 01/25/2025 Active PARoxetine (PAXIL) 20 mg tablet Take 1 tablet (20 mg total) by mouth daily 01/26/2025 Active Active Problems Problem Noted Date Diagnosed Date Primary osteoarthritis of left knee 02/01/2025 Effusion of left knee 02/01/2025 Chronic pain of left knee 02/01/2025 Chest tightness 11/25/2019 Overview (11/25/2019): Added automatically from request for surgery [id number] Coronary artery disease of n ative artery of [place] heart with stable angina pectoris 11/25/2019 Overview (11/25/2019): Added automatically from request for surgery [id number] Frequent PVCs 11/25/2019 Overview (11/25/2019): Added automatically from request for surgery [id number] Obesity with body mass index 30 or [...] Encounters Date Type Department Care Team Description 03/15/2025 Results Follow-Up [facility] Medical Office Building [address] [place] [address] Leena Barron RMA Transthoracic Echo (TTE) Complete W Doppler/CF 03/14/2025 3:00 PM CDT Ancillary Procedure [facility] Cardiology [address] [place] [address] Chronic coronary artery disease 03/14/2025 1:00 PM CDT Ancillary Procedure [facility] [address] [place] [address] Chronic coronary artery disease 02/01/2025 7:42 AM CDT - 02/01/2025 11:59 PM CDT Hospital Encounter [facility] [id number] [place] [address] Left knee pain, unspecified chronicity Discharge Disposition: Discharge to home or self care 02/01/2025 7:40 AM CDT Office Visit 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 file Not on file Not [...] CDT patient reported Height 177.8 cm (5' 10) 02/01/2025 8:1 8 AM CDT patient reported [...] (1 of 2) 2015 Influenza Vaccine (#1) 2025 06/29/2019 Procedures Procedure Name Priority Date/Time Associated Diagnosis Comments TRANSTHORACIC ECHO (TTE) COMPLETE W DOPPLER/CF W CONTRAST Routine 03/14/2025 3:26 PM CDT Chronic coronary artery disease NM MPI SPECT (REST AND/OR STRESS) MULTIPLE STUDIES Schedule Routine, Read Routine (OP Routine) 03/14/2025 2:37 PM CDT Chronic coronary artery disease XR KNEE LEFT 3 VIEWS Schedule Routine, Read Routine (OP Routine) 02/01/2025 7:47 AM CDT Left knee pain, unspecified chronicity from Last 3 Months Results * TRANSTHORACIC ECHO (TTE) COMPLETE W DOPPLER/CF W CONTRAST (03/14/2025 3:26 PM CDT) EF Mod BP 61 % CONS SCIMAGE Anatomical Region Laterality Modality Ultrasound 03/14/2025 2:39 PM CDT Narrative 03/14/2025 8:32 PM CDT [facility], [address] [place] [address] Transthoracic Echocardiographic Report Patient Name: CHANO AVILES E : 1965 (60y ) Gender: M Study Date: 03/14/2025 02:39:42 PM Ht(Inch): 70 Wt(Lb): 225.09 BSA: 2.25 Profile Shaper Operator: Todd Hernandez RDCS Location: [facility] Order Provider: CARMEN HUMPHREY Heart Rate: 63 BMI: 32.29 BP: 124 / 53 Ref Provider: CARMEN HUMPHREY PROCEDURES: Echocardiographic Report: Transthoracic complete echo with strain imaging and contrast, 2D, spectral and tissue Doppler, color flow Doppler, M-mode. Contrast: Contrast Enhancement was Employed: After initial imaging due to sub- optimal quality related to co-morbidity defined by patient's body habitus and due to suboptimal image quality with inadequate visualization of at least 2 of 16 LV wall segments in any view after initial imaging. Perflutren contrast was administered using the volume necessary to obtain adequate images. 1.1 ml Optison Administered, (1.9 ml wasted). Technically difficult study due to: Body habitus. Poor acoustic windows. INDICATIONS: I25.10 Atherosclerotic heart disease of [place] coronary artery without angina pectoris. CONCLUSIONS: 1. Normal left ventricular size based on volume index. Normal LV wall thickness. Normal left ventricular systolic function. The Ejection Fraction (Marion's) is measured at 61 %. Grade I diastolic dysfunction (normal LA pressure). The average global longitudinal strain is borderline. 2. Resting Segmental Wall Motion Analysis: Total wall motion score is 1.41. There is hypokinesis of the entire anterior wall. There is hypokinesis of the mid to apical inferoseptal wall. There is hypokinesis of the apical cap. There is hypokinesis of the mid anteroseptal wall. The remaining left ventricular segments demonstrate normal wall motion. 3. Normal right ventricular size. Normal right ventricular systolic function. 4. The left atrium is normal in size. 5. The right atrium is normal in size. 6. Normal mitral valve structure. Mild mitral valve regurgitation. No stenosis present. 7. Normal trileaflet aortic valve. No aortic regurgitation. No aortic valve stenosis. The mean transaortic gradient is 5 mmHg. The aortic valve area by the continuity equation (using VTI) is 2.54 cm2. Aortic valve dimensionless index is 0.82. 8. Normal tricuspid valve structure. No tricuspid regurgitation. No tricuspid valve stenosis. 9. Normal pulmonic valve structure. No pulmonic regurgitation. No pulmonic valve stenosis present. ATTESTATION: I have personally reviewed and interpreted this study without fellow or resident. - DISCLAIMER: The study images and the final report will be retained in the patient chart by the Echo Laboratory for the legally required time period. This chart constitutes the legal record of any testing performed. FINDINGS: Left Ventricle: Normal left ventricular size based on volume index. Normal LV wall thickness. Normal left ventricular systolic function. The Ejection Fraction (Marion's) is measured at 61 %. Grade I diastolic dysfunction (normal LA pressure). The average global longitudinal strain is borderline. The LV global strain is: -16.8 %. Resting Segmental Wall Motion Analysis: Total wall motion score is 1.41. There is hypokinesis of the entire anterior wall. There is hypokinesis of the mid to apical inferoseptal wall. There is hypokinesis of the apical cap. There is hypokinesis of the mid anteroseptal wall. The remaining left ventricular segments demonstrate normal wall motion. Right Ventricle: Normal right ventricular size. Normal right ventricular systolic function. Left Atrium: The left atrium is normal in size. Right Atrium: The right atrium is normal in size. Atrial Septum: Normal interatrial septum. Mitral Valve: Normal mitral valve structure. Mild mitral valve regurgitation. No stenosis present. Aortic Valve: Normal trileaflet aortic valve. No aortic regurgitation. No aortic valve stenosis. The mean transaortic gradient is 5 mmHg. The aortic valve area by the continuity equation (using VTI) is 2.54 cm2. Aortic valve dimensionless index is 0.82. Tricuspid Valve: Normal tricuspid valve structure. No tricuspid regurgitation. No tricuspid valve stenosis. Pulmonic Valve: Normal pulmonic valve structure. No pulmonic regurgitation. No pulmonic valve stenosis present. Pericardium: Normal pericardium without pericardial effusion. No pericardial effusion. Aorta: Normal aortic root. Normal aortic root size at sinuses of Valsalva. Normal aortic root size when indexed. The ascending aorta is normal in size when indexed. IVC: IVC is normal in size. PASP: Normal estimated pulmonary artery systolic pressure. MEASUREMENTS: 2D/MM Value Range Doppler Value Range LVIDd 2D 5.20 cm [ 4.20 - 5.80 ] AV Peak Mario 1.5 m/s [ 1.0 - 1.7 ] LVIDs 2D 4.40 cm [ 2.50 - 4.00 ] AV Peak PG 9.00 mmHg IVSd 2D 1.09 cm [ 0.60 - 1.00 ] AV Mean PG 5 mmHg LVPWd 2D 1.07 cm [ 0.60 - 1.00 ] AV VTI 26.8 cm LV Thickness Ratio 1.0 LVOT Peak Mario 1.2 m/s [ 0.7 - 1.1 ] LV FS 2D 15.39 % [ 25.00 - 43.00 ] LVOT Peak PG 5.76 mmHg LV Mass 2D 219.82 g LVOT Mean PG 3 mmHg LV Mass Index 2D 97.70 g/m2 LVOT VTI 22.1 cm RWT 0.41 LVOT Diam 1.98 cm EDV Mod BP 153.72 ml [ 62.00 - 150.00 ] XENIA VTI 2.54 cm2 LV EDV Index 68.32 ml/m2 LVOT/AV VTI 0.82 - Dimensionless index (DVI) ESV Mod BP 59.44 ml [ 21.00 - 61.00 ] MV E Peak Mario 0.7 m/s [ 0.6 - 1.3 ] EF Mod BP 61 % [ 52 - 72 ] MV A Peak Mario 0.8 m/s [ 1.0 - 1.2 ] LV GLS -16.8 % [ -25.0 - -18.0 ] MV E/A 0.8 ratio [ 0.8 - 1.5 ] LA Dimension 2D 4.31 cm [ 3.00 - 4.00 ] MV Decel Time 232.14 msec [ 104.00 - 258.00 ] LA Length 4C 5.70 cm Med E` Mario 7.2 cm/sec [ 8.0 - 25.0 ] LA Length 2C 5.91 cm Lat E` Mario 10.4 cm/sec [ 10.0 - 25.0 ] LA Volume BP 62.90 ml Average E/E` 7.95 LA Volume Index 27.96 ml/m2 [ 16.00 - 34.00 ] RV S` 12.62 cm/sec RV Base Dimen 2D 3.7 cm [ 2.5 - 4.2 ] PV Peak Mario 1.4 m/s [ 0.4 - 0.8 ] TAPSE 1.80 cm [ 1.71 - 5.00 ] PV Peak PG 7.84 mmHg RA Volume 45.78 ml RA Volume Index 20.35 ml/m2 AoR Diam 2D 3.44 cm [ 3.10 - 3.70 ] Ao Root Index 1.53 cm/m2 [ 1.00 - 2.00 ] Asc Ao Diam 2D 3.31 cm Asc Ao Index 1.47 cm/m2 Electronically Signed By: Carmen Humphrey MD 03/14/2025 8:31:36 PM CDT Wall Motion Analysis - Resting Procedure Note Carmen Humphrey MD - 03/14/2025 [facility] [place] [address] Transthoracic Echocardiographic Report Patient Name: CHANO AVILES E : 1965 (60y ) Gender: M Study Date: 03/14/2025 02:39:42 PM Ht(Inch): 70 Wt(Lb): 225.09 BSA: 2.25 Profile Shaper Operator: Todd Hernandez JOSE Location: [facility] Order Provider:CARMEN HUMPHREY Heart Rate: 63 BMI: 32.29 BP: 124 / 53 Ref Provider: CARMEN HUMPHREY PROCEDURES: Echocardiographic Report: Transthoracic complete echo with strain imagingand contrast, 2D, spectral and tissue Doppler, color flow Doppler, M-mode. Contrast: Contrast Enhancement was Employed: After initial imaging due tosub- optimal quality related to co-morbidity defined by patient's body habitus and dueto suboptimal image quality with inadequate visualization of at least 2 of 16 LV wallsegments in any view after initial imaging. Perflutren contrast was administered using thevolume necessary to obtain adequate images. 1.1 ml Optison Administered, (1.9 mlwasted). Technically difficult study due to: Body habitus. Poor acoustic windows. INDICATIONS: I25.10 Atherosclerotic heart disease of [place] coronary artery withoutangina pectoris. CONCLUSIONS: 1. Normal left ventricular size based on volume index. Normal LV wallthickness. Normal left ventricular systolic function. The Ejection Fraction (Marion's) ismeasured at 61 %. Grade I diastolic dysfunction (normal LA pressure). The average globallongitudinal strain is borderline. 2. Resting Segmental Wall Motion Analysis: Total wall motion score is1.41. There is hypokinesis of the entire anterior wall. There is hypokinesis of the midto apical inferoseptal wall. There is hypokinesis of the apical cap. There ishypokinesis of the mid anteroseptal wall. The remaining left ventricular segments demonstratenormal wall motion. 3. Normal right ventricular size. Normal right ventricular systolicfunction. 4. The left atrium is normal in size. 5. The right atrium is normal in size. 6. Normal mitral valve structure. Mild mitral valve regurgitation. Nostenosis present. 7. Normal trileaflet aortic valve. No aortic regurgitation. No aorticvalve stenosis. The mean transaortic gradient is 5 mmHg. The aortic valve area by thecontinuity equation (using VTI) is 2.54 cm2. Aortic valve dimensionless index is 0.82. 8. Normal tricuspid valve structure. No tricuspid regurgitation. Notricuspid valve stenosis. 9. Normal pulmonic valve structure. No pulmonic regurgitation. No pulmonicvalve stenosis present. ATTESTATION: I have personally reviewed and interpreted this study without fellow orresident. - DISCLAIMER: The study images and the final report will be retained in the patientchart by the Echo Laboratory for the legally required time period. This chart constitutesthe legal record of any testing performed. FINDINGS: Left Ventricle: Normal left ventricular size based on volume index. NormalLV wall thickness. Normal left ventricular systolic function. The EjectionFraction (Marion's) is measured at 61 %. Grade I diastolic dysfunction (normal LA pressure).The average global longitudinal strain is borderline. The LV global strain is: -16.8%. Resting Segmental Wall Motion Analysis: Total wall motion score is 1.41.There is hypokinesis of the entire anterior wall. There is hypokinesis of the midto apical inferoseptal wall. There is hypokinesis of the apical cap. There ishypokinesis of the mid anteroseptal wall. The remaining left ventricular segments demonstratenormal wall motion. Right Ventricle: Normal right ventricular size. Normal right ventricularsystolic function. Left Atrium: The left atrium is normal in size. Right Atrium: The right atrium is normal in size. Atrial Septum: Normal interatrial septum. Mitral Valve: Normal mitral valve structure. Mild mitral valveregurgitation. No stenosis present. Aortic Valve: Normal trileaflet aortic valve. No aortic regurgitation. Noaortic valve stenosis. The mean transaortic gradient is 5 mmHg. The aortic valve areaby the continuity equation (using VTI) is 2.54 cm2. Aortic valve dimensionlessindex is 0.82. Tricuspid Valve: Normal tricuspid valve structure. No tricuspidregurgitation. No tricuspid valve stenosis. Pulmonic Valve: Normal pulmonic valve structure. No pulmonicregurgitation. No pulmonic valve stenosis present. Pericardium: Normal pericardium without pericardial effusion. Nopericardial effusion. Aorta: Normal aortic root. Normal aortic root size at sinuses of Valsalva.Normal aortic root size when indexed. The ascending aorta is normal in size whenindexed. IVC: IVC is normal in size. PASP: Normal estimated pulmonary artery systolic pressure. MEASUREMENTS: 2D/MM Value Range DopplerValue Range LVIDd 2D 5.20 cm [ 4.20 - 5.80 ] AV Peak Vel1.5 m/s [ 1.0 - 1.7 ] LVIDs 2D 4.40 cm [ 2.50 - 4.00 ] AV Peak PG9.00 mmHg IVSd 2D 1.09 cm [ 0.60 - 1.00 ] AV Mean PG5 mmHg LVPWd 2D 1.07 cm [ 0.60 - 1.00 ] AV VTI26.8 cm LV Thickness Ratio 1.0 LVOT Peak Vel1.2 m/s [ 0.7 - 1.1 ] LV FS 2D 15.39 % [ 25.00 - 43.00 ] LVOT Peak PG5.76 mmHg LV Mass 2D 219.82 g LVOT Mean PG3 mmHg LV Mass Index 2D 97.70 g/m2 LVOT VTI22.1 cm RWT 0.41 LVOT Diam1.98 cm EDV Mod BP 153.72 ml [ 62.00 - 150.00 ] XENIA VTI2.54 cm2 LV EDV Index 68.32 ml/m2 LVOT/AV VTI0.82 - Dimensionless index (DVI) ESV Mod BP 59.44 ml [ 21.00 - 61.00 ] MV E Peak Vel0.7 m/s [ 0.6 - 1.3 ] EF Mod BP 61 % [ 52 - 72 ] MV A Peak Vel0.8 m/s [ 1.0 - 1.2 ] LV GLS -16.8 % [ -25.0 - -18.0 ] MV E/A0.8 ratio [ 0.8 - 1.5 ] LA Dimension 2D 4.31 cm [ 3.00 - 4.00 ] MV Decel Swgh172.14 msec [ 104.00 - 258.00 ] LA Length 4C 5.70 cm Med E` Vel7.2 cm/sec [ 8.0 - 25.0 ] LA Length 2C 5.91 cm Lat E` Vel10.4 cm/sec [ 10.0 - 25.0 ] LA Volume BP 62.90 ml Average E/E`7.95 LA Volume Index 27.96 ml/m2 [ 16.00 - 34.00 ] RV S`12.62 cm/sec RV Base Dimen 2D 3.7 cm [ 2.5 - 4.2 ] PV Peak Vel1.4 m/s [ 0.4 - 0.8 ] TAPSE 1.80 cm [ 1.71 - 5.00 ] PV Peak PG7.84 mmHg RA Jhriou63.78 ml RA Volume Index20.35 ml/m2 AoR Diam 2D 3.44 cm [ 3.10 - 3.70 ] Ao Root Index 1.53 cm/m2 [ 1.00 - 2.00 ] Asc Ao Diam 2D3.31 cm Asc Ao Index1.47 cm/m2 Electronically Signed By: Carmen Humphrey MD 03/14/2025 8:31:36 PM CDT Wall Motion Analysis - Resting us Carmen Humphrey MD CV ECHO PROCEDURES Final Resul t * NM MPI SPECT (Rest and/or Stress) Multiple Studies (03/14/2025 2:37 PM CDT) Anatomical Region Laterality Modality Body N/A Electrocardiogra phy Narrative 03/19/2025 9:10 AM CDT Table formatting from the original result was not included. [facility] [address] [address] Nuclear MPI Pharmaceutical Study Patient Name: Chano Aviles Gender: male : 1965 Date of Study: 03/14/25 Ordering Provider: Carmen Humphrey MD Primary care Provider: Arminda Morrow DO Pt BMI: 32 Examination Myocardial Perfusion Imaging: Pharmacologic/Spect with Gated Imaging and Ejection Fraction Measurement. Cardiac History Moderate CAD. Reason for Examination CAD. Cardiac Risk Factors hypertension, dyslipidemia, and diabetes mellitus. Stress Procedure Baseline or Resting EKG NSR LBBB Pharmaceutical Parameters: Chemical Test duration: 5 min 10 sec. Baseline BP: 124 / 53 mm Hg Baseline HR: 70 /min Peak BP: 136 / 78 mm Hg Peak HR: 76 /min 47 % of PMHR HR Response to Pharmaceutical: Normal BP Response to Pharmaceutical: Normal Functional Capacity: below average ST changes: None Symptoms during Pharmaceutical Injection : short of breath, resolved during recovery Reasons for Termination: End of Protocol Nuclear Procedure Radiopharmaceutical: 10.8 mCi Tc-99M Tetrofosmin IV for rest and 32.5 mCi Tc-99M Tetrofosmin IV for stress. Protocol: Standard myocardial perfusion images were obtained after resting injection of Tc-99M Tetrofosmin intravenously. Resting images were obtained after a 30 minutes delay. Subsequently, an intravenous infusion of 0.4 mg/5ml Regadenoson given over a 10 second injection was given under the supervision of the physician. Tc-99M tetrofosimin was injected intravenously 10-20 seconds post lexiscan/saline flush injection and standard myocardial images were obtained after a 30 minute delay. Images are obtained with a solid state camera. Rest images are obtained in the upright position and stress images are obtained in both upright and supine positions. The overall quality of the study is good. Motion correction was not performed. Regadenoson MPI Stage Time BP HR Sitting 1326 124/53 70 Regadenoson 1332 136/78 70 Recovery 1335 118/69 69 Images Interpretation Gated Spect imaging reveals persistent uptake in the inferior wall which improves with stress images, suggestive of attenuation artifact. No ischemia noted. LV wall motion abnormal with mild septal wall hypokinesis. LV wall function normal with LVEF of 50%. No LV dilatation present. No transischemic dilatation present. Impression Pharmaceutical Myocardial perfusion imaging is abnormal. Persistent uptake in the inferior wall which improves with stress images, suggestive of attenuation artifact. No ischemia noted. LV wall motion abnormal with mild septal wall hypokinesis. LVEF = 50% No chest pain during stress and no ecg changes. Compared to the previous study from 05/13/2023, no ischemia is noted. Recommendation Continue medical therapy. Finding discussed with the patient personally. Stress myocardial perfusion imaging has a known 10-15% false negative rate and a small (5-10%) false positive rate. I have personally supervised and interpreted this study. I have reviewed and/or edited and agree with the written comments contained within the report. Carmen Humphrey MD IMG NM PROCEDURES Final Result * XR Knee Left 3 Views (02/01/2025 [...] or dislocation. Scattered vascular calcifications. Procedure Note Amos Tolbert, Serjio Bonner MD - 02/01/2025 EXAMINATION: XR KNEE LEFT [...] MD IMG XR PROCEDURES Fin al Result from Last 3 Months Insurance [employer] OPEN ACCESS [facility] CHOICE [facility] HMO/PPO Address: [address] [address] [place] [address] [facility] OPEN ACCESS [employer] OPEN ACCESS Care Teams Generation Technician Relationship Specialty Start Date End Date Arminda Morrow DO PCP - General Family Medicine 02/18/22
--- OUTSIDE RECORDS SUMMARY | 2025-04-22 06:42 | XMS_ITS | Encounter Summary ---
Author Organization [facility] Address [address] [place] [address] Phone Care Team Providers Care Sodium Chlorite Operator Name Role Phone Arminda Morrow DO Primary Care Provider +1- [phone] Encounter Details Date Type Department Care Team (Latest Contact Info) Description 03/15/2025 Results Follow-Up [facility] [address] [facility] [address] Office [address] [place] [address] Leena Barron RMA Transthoracic Echo (TTE) Complete W Doppler/CF Social History Tobacco Use Types Packs/Day Years Used Date Smoking Tobacco: Former Cigarettes 0.8 15 0 12/03/1994 - 12/03/2009 Smokeless Tobacco: Never Sex and Gender Information Value Date Recorded Sex Assigned at Not on file 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
--- OUTSIDE RECORDS SUMMARY | 2025-04-22 06:42 | XMS_ITS | Encounter Summary ---
Author Organization [facility] Address [address] [place] [address] Phone Care Team Providers Care Stereotyper Name Role Phone Arminda Morrow DO Primary Care Provider +1- [phone] Encounter Details Date Type Department Care Team (Latest Contact Info) Description 02/08/2021 Orders Only [facility] Scanning, Provider Social History Tobacco Use Types Packs/Day Years Used Date Smoking Tobacco: Former Cigarettes 0.8 15 0 12/03/1994 - 12/03/2009 Smokeless Tobacco: Never Sex and Gender Information Value Date Recorded Sex Assigned at Not on file 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
--- OUTSIDE RECORDS SUMMARY | 2025-04-22 06:42 | XMS_ITS | Encounter Summary ---
Author Organization [facility] Address [address] [place] [address] Phone Care Team Providers Care Artificial Limb Maker Name Role Phone Arminda Morrow DO Primary Care Provider +1- [phone] Encounter Details Date Type Department Care Team (Latest Contact Info) Description 01/29/2021 Orders Only [facility] Scanning, Provider Social History Tobacco Use Types Packs/Day Years Used Date Smoking Tobacco: Former Cigarettes 0.8 15 0 12/03/1994 - 12/03/2009 Smokeless Tobacco: Never Sex and Gender Information Value Date Recorded Sex Assigned at Not on file 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
--- OUTSIDE RECORDS SUMMARY | 2025-04-22 06:42 | XMS_ITS | Clinical Summary ---
Author Organization [facility] [employer] Address [address] [place] [address] Care Team Providers Care Bacon Skinner Name Role Phone Heri Brown MD Primary Care Provider [phone] Source Comments [facility] [employer],non-owned Affiliates and Associated Physician Practices is amultiple site organization consisting of ambulatory clinics and hospital sitesin [place], [place], [place]. This disclosure is being madepursuant to the Care Everywhere program and may not contain all information available regarding this patient. Last updated 18.[facility] [employer] Allergies Active Allergy Reactions Criticality Noted Date [...] 9:53 AM CDT Height 177.8 cm (5' 10) 04/14/2018 9:53 AM CDT Body Mass Index [...] 03/02/1983 DTAP/TDAP/TD VACCINES (1 - Tdap) 1984 PNEUMOCOCCAL VACCINE 50+ (1 of 1 - PCV) 2015 ZOSTER VACCINE (1 of 2) 2015 SCREENING FOR DIABETES 04/14/2018 COVID-19 VACCINE (1 - 2023-2 5 season) 2024 DEPRESSION SCREENING 10/13/2024 Respiratory Syncytial Virus (RSV) Vaccine Pt: or over 60 yrs (1 - Risk 60-74 years 1-dose series) 2025 INFLUENZA VACCINE (#1) 2025 HEPATITIS B VACCINE Aged Out No longe r eligible based on patient's age to complete this topic HIB VACCINE Aged Out No longer eligi [...] patient's age to complete this topic Insurance [facility] Address: [facility] [id number] [place] [address] SELF PAY NO INSURANCE Member Subscriber Plan / Payer (Ef fective for All Dates) Name:Heri Aviles Member ID:Not on file Relation to Subscriber:Not on file Name:HERI AVILES Subscriber ID:Not on file (Home) Address: [address] [place] [address] Payer ID:Not on file Group ID:Not on file Type:Self Pay Address: [place], [place] [facility] SELF PAY NO INSURANCE Member Subscriber Plan / Payer (Ef fective for All Dates) Name:Traci Heri Member ID:Not on file Relation to Subscriber:Not on file Name:HERI AVILES Subscriber ID:Not on file Address: [address] [place] [address] Payer ID:Not on file Group ID:Not on file Type:Self Pay Address: [place], [place] [employer] SELF PAY NO INSURANCE Member Subscriber Plan / Payer (Ef fective for All Dates) Name:Heri Aviles Member ID:Not on file Relation to Subscriber:Not on file Name:HERI AVILES Subscriber ID:Not on file Address: [address] [place] [address] Payer ID:Not on file Group ID:Not on file Type:Self Pay Address: [place], [place] [facility] Address: [facility] [id number] [place] [address] SELF PAY NO INSURANCE Member Subscriber Plan / Payer (Ef fective for All Dates) Name:Heri Aviles Member ID:Not on file Relation to Subscriber:Not on file Name:HERI AVILES Subscriber ID:Not on file Address: [address] [place] [address] Payer ID:Not on file Group ID:Not on file Type:Self Pay Address: [place], [place] Care Teams Bacon Skinner Relationship Specialty Start Date End Date Heri Brown MD [address] [place] [address] PCP - General Family Medicine 04/14/18
--- OUTSIDE RECORDS SUMMARY | 2025-04-22 06:42 | XMS_ITS | Clinical Summary ---
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 Gender Identity Not on file Sexual Orientation Not on file Last Filed Vital Signs Vital Sign Reading Time Taken Comments Blood Pressure 120/72 10/23/2023 2:39 PM PROFESSOR OF RELIGIOUS STUDIES Pulse 72 10/23/2023 2:39 PM PROFESSOR OF RELIGIOUS STUDIES Temperature 36 C (96.8 F) 10/23/2023 2:39 PM PROFESSOR OF RELIGIOUS STUDIES Respiratory Rate 10 10/23/2023 2:39 PM PROFESSOR OF RELIGIOUS STUDIES Oxygen Saturation 95% 10/23/2023 2:39 PM PROFESSOR OF RELIGIOUS STUDIES Inhaled Oxygen Concentration - - Weight 110.7 kg (244 lb) 10/23/2023 2:39 PM PROFESSOR OF RELIGIOUS STUDIES Height 177.8 cm (5' 10) 10/23/2023 2:39 PM PROFESSOR OF RELIGIOUS STUDIES Body Mass Index 35.01 10/23/2023 2:39 PM PROFESSOR OF RELIGIOUS STUDIES Plan of Treatment Health Maintenance Due Date Last Done Comments DTAP/TDAP/TD VACCINES (1 - Tdap) 1984 COLORECTAL SCREENING 2010 Colorectal Cancer Screening 2010 FIT-DNA Q 3 years 2010 FIT/FOBT Q 1 year 2010 Flex Sig/CT Colonography Q 5 years 2010 ZOSTER VACCINE (1 of 2) 2015 RSV VACCINE (60+ or ) (1 - Risk 60-74 years 1-dose series) 2025 INFLUENZA VACCINE (#1) 2025 HEPATITIS B VACCINES Aged Out No long er eligible based on patient's age to complete this topic Insurance [employer] [facility] OPEN ACCESS Care Teams Fabrication And Assembly Supervisor Relationship Specialty Start Date End Date Arminda Morrow DO [facility] [facility] [address] [place] [address] PCP - General Family Practice 10/22/23
--- OUTSIDE RECORDS SUMMARY | 2025-04-22 06:42 | XMS_ITS | Referral Summary ---
Author Organization [facility] Address [address] [place] [address] Care Team Providers Care Channeling Machine Operator Name Role Phone Arminda Morrow DO Primary Care Provider [phone]- [phone] Encounters Date Type Department Care Team Description 03/15/2025 Results Follow-Up [facility] Cardiology [address] [facility] [address] [place] [address] Leena Barron RMA Transthoracic Echo (TTE) Complete W Doppler/CF 03/14/2025 3:00 PM CDT Ancillary Procedure [facility] Cardiology [address] [place] [address] [place] [address] Chronic coronary artery disease 03/14/2025 1:00 PM CDT Ancillary Procedure [facility] Cardiology [address] [place] [address] [place] [address] Chronic coronary artery disease 02/01/2025 7:42 AM CDT - 02/01/2025 11:59 PM CDT Hospital Encounter [facility] [address] [place] [phone] Left knee pain, unspecified chronicity Discharge Disposition: Discharge to home or self care 02/01/2025 7:40 AM CDT Office Visit [facility] Orthopaedic Surgery [id number] [place] [address] [address] [place] [phone] Drew Suarez IV, MD Primary osteoarthritis of left knee (Primary Dx); Effusion of left knee; Chronic pain of left knee from Last 3 Months Allergies Active Allergy [...] (11/25/2019): Added automatically from request for surgery [id number] 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 11/25/2019 Overview (11/25/2019): Added automatically from request for surgery [id number] Frequent PVCs 11/25/2019 Overview (11/25/2019): Added automatically from request for surgery [id number] Obesity with body mass index 30 or [...] on file 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 INDICATIONS: I25.10 Atherosclerotic heart disease of koi coronary artery without angina pectoris. CONCLUSIONS: 1. [...] cm LV Thickness Ratio 1.0 LVOT Peak Mraio 1.2 m/s [ 0.7 - 1.1 ] [...] Humphrey MD - 03/14/2025 [facility], [address] [place] [address] Transthoracic Echocardiographic Report Patient Name: CHANO AVILES E : 1965 (60y ) Gender: M Study Date: 03/14/2025 02:39:42 PM Ht(Inch): 70 Wt(Lb): 225.09 BSA: 2.25 Engineer Sergeant: Todd Hernandez RDCS [place] [facility] [place] Provider:CARMEN HUMPHREY Heart Rate: 63 BMI: [...] windows. INDICATIONS: I25.10 Atherosclerotic heart disease of koi coronary artery withoutangina pectoris. CONCLUSIONS: 1. Normal [...] [ 3.00 - 4.00 ] MV Decel Htro664.14 msec [ 104.00 - 258.00 ] LA [...] 5.00 ] PV Peak PG7.84 mmHg RA Dgpfby46.78 ml RA Volume Index20.35 ml/m2 AoR Diam [...] from the original result was not included. [facility] [address] [address] [employer] Study Patient Name: Chano [...] the written comments contained within the report. us Carmen Humphrey MD IMG NM PROCEDURES Final [...] al Result from Last 3 Months Insurance [employer] OPEN ACCESS [facility] CHOICE PLUS [facility] HMO/PPO Address: [address] [address] [place] [address] [employer] OPEN ACCESS [employer] OPEN ACCESS Care Teams Channeling Machine Operator Relationship Specialty Start Date End Date Arminda Morrow DO PCP - General Family Medicine 02/18/22
--- OUTSIDE RECORDS SUMMARY | 2025-04-22 06:42 | XMS_ITS | Continuity of Care Document ---
Author Organization [facility] Address [address] [place] [address] [place] [address] Phone Care Team Providers Care Market Analyst Name Role Phone Bashir Alford MD Unavailable Unavailable Advance Directives Directive Yes / No Effective Date File Name No Information Encounters Encounter Description Practice Location Reason(s) For Visit Diagnoses Date Provider Providers Copied on Encounter Formerly [facility], [address], [place], [place], [id number], [place] tel:[phone] [facility] No Information 0 [address] [facility] [address], [place], [place], [id number], [place]. tel:[phone] Family History Family Member Type Diagnosis Age At Onset No Information Payers Payer name Insurance type Covered libertarian ID Authoriza tion(s) No Information Social History [...]
--- OUTSIDE RECORDS SUMMARY | 2025-04-22 06:42 | XMS_ITS | Encounter Summary ---
Author Organization [facility] Address [address] [place] [address] Phone Care Team Providers Care Webmaster Name Role Phone Arminda Morrow DO Primary Care Provider [phone]- [phone] Encounter Details Date Type Department Care Team (Latest Contact Info) Description 10/19/2021 Orders Only [facility] Scanning, Provider Social History Tobacco Use Types Packs/Day Years Used Date Smoking Tobacco: Former Cigarettes 0.8 15 0 12/03/1994 - 12/03/2009 Smokeless Tobacco: Never Sex and Gender Information Value Date Recorded Sex Assigned at Not on file 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
--- OUTSIDE RECORDS SUMMARY | 2025-04-22 06:42 | XMS_ITS | Encounter Summary ---
Author Organization [facility] Address [address] [place] [address] Phone Care Team Providers Care Brewery Representative Name Role Phone Arminda Morrow DO Primary Care Provider [phone]- [phone] Encounter Details Date Type Department Care Team (Latest Contact Info) Description 12/06/2024 Orders Only [facility] Scanning, Provider Social History Tobacco Use Types Packs/Day Years Used Date Smoking Tobacco: Former Cigarettes 0.8 15 0 12/03/1994 - 12/03/2009 Smokeless Tobacco: Never Sex and Gender Information Value Date Recorded Sex Assigned at Not on file 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
[2025-04-22 08:31] LABS: Hematocrit 46.7 % (42.0-52.0); Hemoglobin 15.4 g/dL (14.0-18.0); Mean Corpuscular HGB Conc 33.0 g/dl (32-36); Mean Corpuscular Hemoglobin 30.6 pg (26-34); Mean Corpuscular Volume 92.7 fl (80-100); Platelet Count Result 167 k/mm3 (150-375); Red Blood Count 5.04 M/mm3 (4.6-6.20); White Blood Count 7.4 K/mm3 (4.5-10.0)
[2025-04-22 08:51] LABS: Alanine Aminotransferase 28 U/L (6-50); Albumin Level 4.8 g/dL (3.5-5.1); Alkaline Phosphatase 44 U/L (38-126); Anion Gap 14 mmol/L (4-12); Aspartate Amino Transferase 30 U/L (17-59); Bilirubin,Total 0.8 mg/dL (0.2-1.3); Blood Urea Nitrogen 21 mg/dL (9-20); Calcium 10.1 mg/dL (8.4-10.2); Carbon Dioxide 24 mmol/L (22-30); Chloride 102 mmol/L (98-107); Cholesterol 114 mg/dL (0-200); Estimated Glomerular Filt Rate > 60; Glucose 129 mg/dL (65-110); HDL Direct 35 mg/dL; Potassium 4.2 mmol/L (3.4-5.0); Sodium 140 mmol/L (137-145); Total Protein 7.8 g/dL (6.3-8.2); Triglycerides 158 mg/dL (<150)
[2025-04-22 09:07] LABS: Free T4 Free Thyroxine 0.90 ng/dL (0.78-2.19)
[2025-04-22 09:26] LABS: Thyroid Stimulating Hormone 3.040 uIU/mL (0.465-4.680)
[2025-04-22 09:49] LABS: Hemoglobin A1C 5.6 % (<5.7)
[2025-04-22 09:57] LABS: MALB Creatinine Ratio 21.9 mg/g (0-30)
== END 2025-04-22 06:40 | disposition home or self-care (01) ==
LOC: ANHLAB 06:40
PROVIDERS: PCP Nurse Practitioner; Visit Provider Nurse Practitioner
DX: Z00.00 Encounter for general adult medical examination without abnormal findings (principal); E78.2 Mixed hyperlipidemia; E11.9 Type 2 diabetes mellitus without complications; E03.9 Hypothyroidism, unspecified
CPT/HCPCS: 36415; 80053; 80061; 82043; 83036; 84439; 84443; 85027